=== PATIENT | male | born 1955 | race Caucasian/White ===

== ENCOUNTER → 2017-07-03 | Outpatient (CLI) | payer BC ==
[2017-07-03 15:27] LABS: Basophils % (A) 0 %; Eosinophils # (A) 0.2 k/uL (0-0.7); Eosinophils % (A) 3 %; HCT 42.3 % (39.0-53.0); Hyperchromasia Slight; Lymphocytes # (A) 1.8 k/uL (1.0-4.8); Lymphocytes % (A) 28 %; MCHC 35.5 g/dL (31.0-37.0); MCV 87.3 fL (80.0-100.0); Mean Platelet Volume 7.5; Monocytes # (A) 0.4 k/uL (0-1.0); Monocytes % (A) 6 %; Neutrophils # (A) 3.9 k/uL (1.3-7.7); Neutrophils % (A) 62 %; Platelet Count 313 k/uL (150-450); RBC 4.84 m/uL (4.30-5.90); RDW 12.6 % (11.5-15.5); WBC 6.3 k/uL (3.8-10.6)
[2017-07-03 15:48] LABS: ALT 33 U/L (21-72); AST 22 U/L (17-59); Albumin 4.4 g/dL (3.5-5.0); Alkaline Phosphatase 73 U/L (38-126); Anion Gap 13 mmol/L; Blood Urea Nitrogen 24 mg/dL (9-20); Calcium 9.8 mg/dL (8.4-10.2); Carbon Dioxide 24 mmol/L (22-30); Chloride 105 mmol/L (98-107); Cholesterol 193 mg/dL (<200); Glucose 89 mg/dL (74-99); HDL Cholesterol 35 mg/dL (40-60); LDL Cholesterol,Calculated 137 mg/dL (0-99); Potassium 4.8 mmol/L (3.5-5.1); Sodium 142 mmol/L (137-145); Total Bilirubin 0.9 mg/dL (0.2-1.3); Triglycerides 105 mg/dL (<150)
[2017-07-03 16:20] LABS: PSA Annual Screen 4.31 ng/mL (0.00-4.00)
== END | disposition home or self-care (01) ==
LOC: LABWHC1 14:41
PROVIDERS: ATTEND Internal Medicine
DX: Z00.00 Encounter for general adult medical examination without abnormal findings (principal); R97.20 Elevated prostate specific antigen [PSA]; Z13.6 Encounter for screening for cardiovascular disorders
CPT/HCPCS: 80061; 80053; 84443; 85025; 36415; G0103

== ENCOUNTER → 2022-02-16 | Day surgery (SDC) | payer BC ==
[~2022-02-16] MED LIST: LACTATED RINGERS 1,000 ML IV SCH; PROPOFOL 10 MG/ML 20 ML VIAL IV ONE
[2022-02-16 09:53] VITALS: TEMP 96.9
--- NOTE | 2022-02-16 12:07 | P.PCN ---
Date of Procedure: 02/16/22 Procedure(s) Performed: BRIEF HISTORY: Patient is a 66-year-old pleasant white male scheduled for an elective colonoscopy as a part of screening for colorectal neoplasia PROCEDURE PERFORMED: Colonoscopy. PREOPERATIVE DIAGNOSIS: Screening for colon cancer. IV sedation per Anesthesia. PROCEDURE: After informed consent was obtained, the patient, was brought into the endoscopy unit. IV sedation was administered by Anesthesia under continuous monitoring. Digital rectal examination was normal. Initially the Olympus CF-160 flexible video colonoscope was then inserted in the rectum, gradually advanced into the cecum without any difficulty. Careful examination was performed as the scope was gradually being withdrawn. Ileocecal valve and the appendiceal orifice were visualized and appeared normal. Prep was fair.. Mucosa of the cecum, ascending colon, transverse colon, descending colon, sigmoid colon, and rectum appeared normal. Retroflexion was performed in the rectum and no lesions were seen. The patient tolerated the procedure well. IMPRESSION:Normal-appearing colon from rectum to cecum no evidence of colorectal neoplasia . Scattered sigmoid diverticulosis. RECOMMENDATIONS: Findings of this examination were discussed with the patient as well as his family. He was advised to have a repeat screening colonoscopy in 10 years.
[2022-02-16 12:33] VITALS: BP 125/67; PULSE 66; RESP 16
== END ==
LOC: ORWHC2ENDO 09:24
PROVIDERS: ATTEND Internal Medicine Gastroenterology
DX: Z12.11 Encounter for screening for malignant neoplasm of colon (principal); K57.30 Diverticulosis of large intestine without perforation or abscess without bleeding; Z87.438 Personal history of other diseases of male genital organs; Z79.83 Long term (current) use of bisphosphonates; Z79.1 Long term (current) use of non-steroidal anti-inflammatories (NSAID); Z79.818 Long term (current) use of other agents affecting estrogen receptors and estrogen levels; Z79.82 Long term (current) use of aspirin
CPT/HCPCS: 45378; J2704; G0121

== ENCOUNTER → 2024-03-13 | Outpatient (CLI) | payer MEDICARE ==
--- NOTE | 2024-03-13 13:27 | XR ---
EXAMINATION TYPE: XR shoulder complete LT DATE OF EXAM: 03/13/2024 1:24 PM INDICATION: Patient age:Male; 68 years old; Reason for study: M25.512 pain L shoulder; pain COMPARISON: None TECHNIQUE: The left shoulder was examined in AP, internally rotated and scapular Y projections. . FINDINGS: No evidence of acute osseous pathology, joint dislocation, or soft tissue swelling. The remaining por tions of the visualized chest are unremarkable. IMPRESSION: No acute osseous pathology. [facility], , 03/13/2024 1:25 PM
== END | disposition home or self-care (01) ==
LOC: RADXRMAIN 13:06
PROVIDERS: ATTEND Family Medicine
DX: M25.512 Pain in left shoulder (principal)

== ENCOUNTER 2024-05-09 15:08 | Inpatient (IN) | payer MEDICARE ==
--- NOTE | 2024-05-09 15:16 | ED ---
Chest Pain HPI - General Source: patient, RN notes reviewed Mode of arrival: ambulatory Limitations: no limitations <Deepti Chamberlain - Last Filed: 05/09/24 15:15> <Octavio Gomez - Last Filed: 05/09/24 18:29> - General Stated Complaint: Chest pain-sent by PCP Time Seen by Provider: 05/09/24 15:15 - History of Present Illness Initial Comments: Quick note: 68-year-old male presented the ER for evaluation of chest discomfort. Patient states yesterday he was seen by PCP due to this as he had a burning/pulsating chest discomfort on Saturday night that woke him out of his sleep. He states it lasted for approximately an hour. He felt was indigestion and took an antiacid medication and fell back asleep. PCP contacted patient today stating abnormal laboratory studies completed yesterday and to report to the emergency department. Patient denies any current chest pain. Patient denies any history of MIs or stent placement. (Deepti Chamberlain) This is a 68-year-old male who presents to the emergency department stating that he has been having intermittent chest pain anytime he gets out of his car walks into work. Patient states he short of breath when it occurs and it last for about half an hour until he is rested enough where it goes away. Patient states he has had no history of heart problems he does have some family history that is positive. Patient states he also has high cholesterol. Patient denies diabetes or hypertension or smoking. Patient denies any fever chills or cough. Patient denies headache patient denies numbness weakness. Patient states currently that he has only very minimal chest pain (Octavio Gomez) - Related Data Home Medications Medication Instructions Recorded Confirmed Acetaminophen [Tylenol Arthritis] 1,300 mg PO BID 05/09/24 05/09/24 Cyclobenzaprine [Flexeril] 5 mg PO HS PRN 05/09/24 05/09/24 Metoprolol Succinate (ER) [Toprol 25 mg PO DAILY 05/09/24 05/09/24 Xl] Nitroglycerin Sl Tabs [Nitrostat] 0.4 mg SUBLINGUAL Q5M PRN 05/09/24 05/09/24 Allergies Allergy/AdvReac Type Severity Reaction Status Date / Time No Known Allergies Allergy Verified 05/09/24 15:59 Review of Systems ROS Other: All systems not noted in ROS Statement are negative. <Deepti Chamberlain - Last Filed: 05/09/24 15:15> ROS Other: All systems not noted in ROS Statement are negative. <Octavio Gomez - Last Filed: 05/09/24 18:29> ROS Statement: Those systems with pertinent positive or pertinent negative responses have been documented in the HPI. Past Medical History Past Medical History: Prostate Disorder Additional Past Medical History / Comment(s): recent biopsy of prostate( local) History of Any Multi-Drug Resistant Organisms: None Reported Past Surgical History: No Surgical Hx Reported Past Anesthesia/Blood Transfusion Reactions: No Reported Reaction Smoking Status: Never smoker - Past Family History Mother Family Medical History: Cancer Additional Family Medical History / Comment(s): rectal Father Additional Family Medical History / Comment(s): parkinsons <Deepti Chamberlain - Last Filed: 05/09/24 15:15> General Exam <Deepti Chamberlain - Last Filed: 05/09/24 15:15> <Octavio Gomez - Last Filed: 05/09/24 18:29> - General Exam Comments Initial Comments: Visual Physical Exam Vital signs reviewed General: Well-appearing, nontoxic, no acute distress. Head: Normocephalic, atraumatic Eyes: PERRLA, EOMI ENT: Airway patent Chest: Nonlabored breathing Skin: No visual rash, normal skin tone Neuro: Alert and oriented 3 Musculoskeletal: No gross abnormalities (Deepti Chamberlain) GENERAL: Patient is well-developed and well-nourished. Patient is nontoxic and well- hydrated and is in mild distress. ENT: Neck is soft and supple. No significant lymphadenopathy is noted. Oropharynx is clear. Moist mucous membranes. Neck has full range of motion without eliciting any pain. EYES: The sclera were anicteric and conjunctiva were pink and moist. Extraocular movements were intact and pupils were equal round and reactive to light. Eyelids were unremarkable. PULMONARY: Unlabored respirations. Good breath sounds bilaterally. No audible rales rhonchi or wheezing was noted. CARDIOVASCULAR: There is a regular rate and rhythm without any murmurs gallops or rubs. ABDOMEN: Soft and nontender with normal bowel sounds. SKIN: Skin is clear with no lesions or rashes and otherwise unremarkable. NEUROLOGIC: Patient is alert and oriented x3. Cranial nerves II through XII are grossly intact. Motor and sensory are also intact. Normal speech, volume and content. Symmetrical smile. MUSCULOSKELETAL: Normal extremities with adequate strength and full range of motion. LYMPHATICS: No significant lymphadenopathy is noted PSYCHIATRIC: Normal psychiatric evaluation. (Octavio Gomez) Course Vital Signs 05/09/24 05/09/24 15:21 17:00 Temperature 97.4 F L Pulse Rate 64 75 Respiratory 17 16 Rate Blood Pressure 155/76 137/80 O2 Sat by Pulse 99 97 Oximetry Chest Pain MDM <Deepti Chamberlain - Last Filed: 05/09/24 15:15> <Octavio Gomez - Last Filed: 05/09/24 18:29> - WARREN I performed the quick note portion of this chart. Electronically signed by Deepti Chamberlain PA-C (Deepti Chamberlain) EKG is interpreted by myself EKG shows sinus rhythm at 70 bpm HI intervals 179 QRS is 97 QT interval 381 QTc is 402. Patient's EKG shows no ST segment elevation or depression Was pt. sent in by a medical professional or institution (KIERA Butler, [employer], urgent care, hospital, or [place] health care facility...) When possible be specific @ -No Did you speak to anyone other than the patient for history (EMS, parent, family, police, friend...)? What history was obtained from this source @ -No Did you review nursing and triage notes (agree or disagree)? Why? @ -I reviewed and agree with nursing and triage notes Were old charts reviewed (outside hosp., previous admission, EMS record, old EKG, old radiological studies, urgent care reports/EKG's, [place] health care facility records)? Report findings @ -No old charts were reviewed Differential Diagnosis? @ -Differential Chest Pain: Stable Angina, Unstable Angina, STEMI, NSTEMI Aortic Dissection, Pneumothorax, Musculoskeletal, Esophageal Spasm GERD, Cholecystitis, Pancreatitis, Zoster, this is not meant to be an all-inclusive list. EKG interpreted by me (3pts min.). @ -As above X-rays interpreted by me (1pt min.). @ -Chest x-ray shows no acute normality CT interpreted by me (1pt min.). @ -None done U/S interpreted by me (1pt. min.). @ -None done What testing was considered but not performed or refused? (CT, X-rays, U/S, labs)? Why? @ -None What meds were considered but not given or refused? Why? @ -None Did you discuss the management of the patient with other professionals (professionals i.e. Dr., PA, [employer], lab, RT, psych nurse, sexual assault social worker, digital press operator, teacher, soil science technical officer, case briefer)? Give summary @ -I spoke with Dr. De Los Santos he agreed to admit the patient admit the patient I consulted cardiology. Spoke with Dr. Jake boone with the patient on metoprolol and heparin end I ordered those Was smoking cessation discussed for >3mins.? @ -No Was critical care preformed (if so, how long)? @ -35 minutes Were there social determinants of health that impacted care today? How? (Homelessness, low income, unemployed, alcoholism, drug addiction, transportation, low edu. Level, literacy, decrease access to med. care, long-term, rehab)? @ -No Was there de-escalation of care discussed even if they declined (Discuss DNR or withdrawal of care, Hospice)? DNR status @ -No What co-morbidities impacted this encounter? (DM, HTN, Smoking, COPD, CAD, Cancer, CVA, ARF, Chemo, Hep., AIDS, mental health diagnosis, sleep apnea, morbid obesity)? @ -None Was patient admitted / discharged? Hospital course, mention meds given and route, prescriptions, significant lab abnormalities, going to OR and other pertinent info. @ -Patient was chest pain-free throughout the ED course. Patient's troponin was elevated patient was placed on heparin given aspirin Nitropaste and given metoprolol and Lipitor cardiology will be consulted Undiagnosed new problem with uncertain prognosis? @ -No Drug Therapy requiring intensive monitoring for toxicity (Heparin, Nitro, Insulin, Cardizem)? @ -No Were any procedures done? @ -No Diagnosis/symptom? @ -NSTEMI Acute, or Chronic, or Acute on Chronic? @ -Acute Uncomplicated (without systemic symptoms) or Complicated (systemic symptoms)? @ -Complicated Side effects of treatment? @ -No Exacerbation, Progression, or Severe Exacerbation? @ -No Poses a threat to life or bodily function? How? (Chest pain, [place], [place], pneumonia, PE, COPD, DKA, ARF, appy, cholecystitis, CVA, Diverticulitis, Homicidal, Suicidal, threat to staff... and all critical care pts) @ -Yes this can lead to heart damage and endorgan dysfunction (Octavio Gomez) Disposition <Deepti Chamberlain - Last Filed: 05/09/24 15:15> Time of Disposition: 18:29 <Octavio Gomez - Last Filed: 05/09/24 18:29> Clinical Impression: Acute non-ST elevation myocardial infarction (NSTEMI) Disposition: ADMITTED IP TO THIS HOSP Referrals: Livier Zuñiga MD [Primary Care Provider] - 1-2 days
[2024-05-09 15:29] LABS: Basophils # (A) 0.1 k/uL (0-0.2); Basophils % (A) 1 %; Eosinophils # (A) 0.4 k/uL (0-0.7); Eosinophils % (A) 5 %; HCT 43.9 % (39.0-53.0); HGB 14.8 gm/dL (13.0-17.5); Lymphocytes # (A) 2.1 k/uL (1.0-4.8); Lymphocytes % (A) 26 %; MCH 30.5 pg (25.0-35.0); MCHC 33.7 g/dL (31.0-37.0); MCV 90.3 fL (80.0-100.0); Mean Platelet Volume 7.4; Monocytes # (A) 0.4 k/uL (0-1.0); Monocytes % (A) 5 %; Neutrophils % (A) 62 %; Platelet Count 300 k/uL (150-450); RBC 4.87 m/uL (4.30-5.90); RDW 12.4 % (11.5-15.5)
[2024-05-09 15:48] LABS: Partial Thromboplastin Time 22.6 sec (22.0-30.0); Prothrombin Time 11.1 sec (10.0-12.5)
[2024-05-09 16:04] LABS: ALT 21 U/L (4-49); AST 31 U/L (17-59); African American GFR (CKD) >90 (>60 ml/min/1.73 sqM); Albumin 4.6 g/dL (3.5-5.0); Alkaline Phosphatase 82 U/L (38-126); Anion Gap 9 mmol/L; Blood Urea Nitrogen 23 mg/dL (9-20); Calcium 9.7 mg/dL (8.4-10.2); Carbon Dioxide 26 mmol/L (22-30); Chloride 100 mmol/L (98-107); Glucose 101 mg/dL (74-99); Non-African American GFR(CKD) >90 (>60 ml/min/1.73 sqM); Potassium 4.7 mmol/L (3.5-5.1); Sodium 135 mmol/L (137-145); Total Bilirubin 0.7 mg/dL (0.2-1.3); Total Protein 6.9 g/dL (6.3-8.2)
--- NOTE | 2024-05-09 16:10 | XR ---
EXAMINATION TYPE: XR chest 2V DATE OF EXAM: 05/09/2024 4:01 PM COMPARISON: None. CLINICAL INDICATION: Male, 68 years old with history of Chest Pain: Shortness of breath TECHNIQUE: XR chest 2V views of the chest are obtained. FINDINGS: Scattered senescent parenchymal changes noted. Hyperinflation compatible with COPD. No evidence for infiltrate. No evidence for atelectasis. Heart size is stable. Mediastinal structures are stable and grossly unremarkable. No evidence for hilar prominence. Degenerative changes dorsal spine. IMPRESSION: 1. No evidence for acute pulmonary disease. [facility], , 05/09/2024 4:07 PM
[2024-05-09] MEDS: ASPIRIN 81 MG PO STA (16:41)
[2024-05-09] MEDS: NITROGLYCERIN OINT 1 INCH/GM PACKET TOPICAL STA (16:41)
[2024-05-09] MEDS ORDERED: NITROGLYCERIN SL TABS 0.4 MG TAB SUBLINGUAL PRN (18:25)
[2024-05-09] MEDS: HEPARIN SODIUM 1,000 UN/ML (10ML VL) IV ONE (19:04)
[2024-05-09] MEDS: ATORVASTATIN 80 MG TAB PO STA (19:04)
[2024-05-09] MEDS: HEPARIN SOD,PORK IN 0.45% NACL 25,000 UNIT in 0.45% NACL 1 250ML.BAG IV SCH (19:08)
--- NOTE | 2024-05-09 20:27 | HP ---
HISTORY AND PHYSICAL CHIEF COMPLAINT: Chest pain on and off. HISTORY OF PRESENT ILLNESS: This is a 68-year-old gentleman with a past medical history of multiple medical problems including prostate disorder, was having right shoulder pain. The patient also had chest pain on and off. The patient has upper part of the chest pressure type of sensation. The patient came to [facility]. Troponins elevated up to 0.761. There is no history of any fever, rigors, or chills at this time. The patient is being admitted for further evaluation and treatment. PAST MEDICAL HISTORY: Reviewed include prostate disorder. The rest of history and rest of the chart is also reviewed. HOME MEDICATIONS: Reviewed include Tylenol. ALLERGIES: None. FAMILY HISTORY: History of rectal cancer. SOCIAL HISTORY: No history of smoking or alcohol. REVIEW OF SYSTEMS: Fourteen-point review of systems is negative except as mentioned earlier. PHYSICAL EXAMINATION: VITAL SIGNS: Pulse is 74, blood pressure 136/80, and respirations 16. HEENT: Conjunctivae normal. NECK: No JVD. CARDIOVASCULAR: S1, S2. ABDOMEN: Soft and nontender. LEGS: No edema. No swelling. NERVOUS SYSTEM: Nonfocal. LABORATORY DATA: Sodium 135. Troponins noted. EKG shows nonspecific ST-T wave changes. ASSESSMENT: 1. Chest pain, possible acute [id number] elevation myocardial infarction with troponin elevated up to 0.761. 2. Shortness of breath . 3. Shoulder pain. 4. History of prostate disorder. RECOMMENDATIONS AND DISCUSSION: This is a 68-year-old gentleman who presented with multiple complex medical issues. We will monitor the patient. We will initiate IV heparin, Cardiology consultation, possible cardiac catheterization, 2D echo. Prognosis is guarded because of multiple complex medical issues. Further recommendations to follow. MMODL / IJN: [id number] / MTDD
[2024-05-09] MEDS: ACETAMINOPHEN TAB 325 MG TAB PO SCH (22:04)
[2024-05-09] MEDS: METOPROLOL TARTRATE 50 MG TAB PO SCH (22:04)
[2024-05-09] MEDS: NITROGLYCERIN OINT 1 INCH/GM PACKET TOPICAL SCH (23:02)
[2024-05-10] MEDS: HEPARIN SODIUM 1,000 UN/ML (10ML VL) IV PRN (02:47)
[2024-05-10] MEDS ORDERED: HEPARIN SODIUM,PORCINE (1 ML) 2,500 UNIT in SODIUM CHLORIDE 0.9% 250 ML IRRIGATION PRN (07:00)
[2024-05-10] MEDS ORDERED: HEPARIN SODIUM,PORCINE 10,000 UNIT in SODIUM CHLORIDE 0.9% 1,000 ML IRRIGATION PRN (07:00)
[2024-05-10] MEDS: ASPIRIN 325 MG TAB PO SCH (09:10)
--- NOTE | 2024-05-10 09:14 | P.CRDCN ---
History of Present Illness Consult date: 05/10/24 Consult reason: chest pain History of present illness: This is Pedro Marmolejo NP, I'm dictating on behalf of Dr. Noel's H&P and A&P The patient was interviewed and examined. HPI: Patient is a pleasant 68-year-old male with a past medical history of enlarged prostate and hyperlipidemia who presented to the hospital for evaluation of chest discomfort. Patient reports that he presented to his primary care provider's office yesterday due to a burning/pulsating chest discomfort in the middle of last week that woke him up. This has happened over the last 3 weeks. He reported that it lasted approximately an hour, and thought that maybe he was having heartburn and took an antiacid. He has also been having burning chest pain with shortness of breath when he walks into and out of work, that resolves at rest. Patient had lab work completed through his primary care office, and after finding abnormal studies he was called and were told to report to the emergency department. He states the chest pain has been intermittent, sp ecifically with walking into work. He does get short of breath when it occurs and reports that the shortness of breath last for about half hour until he is rested enough. He has no significant history of heart issues. Troponins are elevated at 0.7, but flat trend. The troponin that was completed from his primary care provider's office was at 1. EKG demonstrates normal sinus rhythm with no evidence of ST elevation or T wave inversion. Chest x-ray is clear. This morning the patient reports very minimal chest discomfort. He denies any shortness of breath. He reports his worst episode of discomfort being the pounding sensation he got in the middle of last week, and also reports that his burning chest pain and shortness of breath increased in the middle of last week as well. ROS: [No fever, chills, or rigors] [no cough, phlegm, or expectoration] [no nausea, vomiting, or diarrhea] [no hematuria, dysuria] [no musculoskelatal complaints] [no strokes or seizures] [no skin lesions] EXAMINATION: GENERAL: Well-appearing, well-nourished and in no acute distress. NECK: Supple without JVD or thyromegaly. LUNGS: Breath sounds clear to auscultation bilaterally. Respiration equal and unlabored. No wheezes, rales or rhonchi. HEART: Regular rate and rhythm without murmurs, rubs or gallops. S1 and S2 heard. EXTREMITIES: Normal range of motion, no edema. No clubbing or cyanosis. Per ipheral pulses intact and strong. REVIEW OF LABS, ECG & MEDICAL DATA: LABS: White count 8, hemoglobin 14.8, platelets 300, D-dimer 0.29, sodium 135, potassium 4.7, BUN 23, creatinine 0.84, magnesium 2, troponin-0.761, 0.708, 0.794 EKG: Sinus mechanism IMAGING: Chest x-ray dated 05/09/2024 demonstrates no evidence for acute pulmonary disease. VITALS: Pulse 65, respirations 17, blood pressure 136/83, O2 saturation 94% over room air IMPRESSION: 1. Stable angina 2. Elevated troponin, likely non-ST elevated AR, currently flat trend 3. History high cholesterol PLAN: Check lipid panel, hemoglobin A1c. Start losartan 25 mg daily. Continue metoprolol 50 mg twice daily. Patient will need coronary angiogram, as symptoms are consistent with stable angina with possible AR, likely 5 to 7 days ago. Further recommendations pending patient's clinical course. Thank you for the consult and allowing us to participate in the care of this patient. Past Medical History Past Medical History: Prostate Disorder Additional Past Medical History / Comment(s): recent biopsy of prostate( local) History of Any Multi-Drug Resistant Organisms: None Reported Past Surgical History: No Surgical Hx Reported Past Anesthesia/Blood Transfusion Reactions: No Reported Reaction Past Psychological History: No Psychological Hx Reported Smoking Status: Never smoker - Past Family History Mother Family Medical History: Cancer Additional Family Medical History / Comment(s): rectal Father Additional Family Medical History / Comment(s): parkinsons Medications and Allergies Home Medications Medication Instructions Recorded Confirmed Type Acetaminophen [Tylenol Arthritis] 1,300 mg PO BID 05/09/24 05/09/24 History Cyclobenzaprine [Flexeril] 5 mg PO HS PRN 05/09/24 05/09/24 History Metoprolol Succinate (ER) [Toprol 25 mg PO DAILY 05/09/24 05/09/24 History Xl] Nitroglycerin Sl Tabs [Nitrostat] 0.4 mg SUBLINGUAL Q5M PRN 05/09/24 05/09/24 History Allergies Allergy/AdvReac Type Severity Reaction Status Date / Time No Known Allergies Allergy Verified 05/09/24 15:59 Physical Exam Vitals: Vital Signs Temp Pulse Resp BP Pulse Ox 05/10/24 09:00 68 17 134/83 98 05/10/24 05:53 65 17 136/83 94 L 05/10/24 02:49 66 18 141/83 94 L 05/09/24 23:01 67 18 127/72 97 05/09/24 22:05 69 16 133/73 97 05/09/24 19:00 87 16 133/80 96 05/09/24 18:00 82 13 146/83 97 05/09/24 17:00 75 16 137/80 97 05/09/24 15:21 97.4 F L 64 17 155/76 99 Intake and Output 05/09/24 05/10/24 05/10/24 22:59 06:59 14:59 Intake Total 74.791 Balance 74.791 Intake: Intake, IV Titration 74.791 Amount Heparin Sod,Pork in 0.45% 74.791 NaCl 25,000 unit In 0.45 % NaCl 1 250ml.bag @ 12 UNITS/KG/HR 9.798 mls/hr IV .Q24H [facility] Rx#: [id number] Other: Weight 81.647 kg Results 05/09/24 15:19 05/09/24 15:19 Cardiac Enzymes 05/09/24 05/09/24 05/09/24 Range/Units 15:19 15:19 19:24 AST 31 (17-59) U/L Troponin I 0.761 H* 0.708 H* (0.000-0.034) ng/mL 05/09/24 Range/Units 22:43 AST (17-59) U/L Troponin I 0.794 H* (0.000-0.034) ng/mL Coagulation 05/09/24 05/10/24 Range/Units 15:19 01:12 PT 11.1 (10.0-12.5) sec APTT 22.6 34.5 H (22.0-30.0) sec CBC 05/09/24 Range/Units 15:19 WBC 8.0 (3.8-10.6) k/uL RBC 4.87 (4.30-5.90) m/uL Hgb 14.8 (13.0-17.5) gm/dL Hct 43.9 (39.0-53.0) % Plt Count 300 (150-450) k/uL Comprehensive Metabolic Panel 05/09/24 Range/Units 15:19 Sodium 135 L (137-145) mmol/L Potassium 4.7 (3.5-5.1) mmol/L Chloride 100 (98-107) mmol/L Carbon Dioxide 26 (22-30) mmol/L BUN 23 H (9-20) mg/dL Creatinine 0.84 (0.66-1.25) mg/dL Glucose 101 H (74-99) mg/dL Calcium 9.7 (8.4-10.2) mg/dL AST 31 (17-59) U/L ALT 21 (4-49) U/L Alkaline Phosphatase 82 (38-126) U/L Total Protein 6.9 (6.3-8.2) g/dL Albumin 4.6 (3.5-5.0) g/dL Current Medications Generic Name Dose Route Start Last Admin Trade Name Freq PRN Reason Stop Dose Admin Acetaminophen 650 mg 05/09/24 22:00 05/10/24 09:11 Acetaminophen Tab 325 Mg Tab PO Not Given TID [facility] Aspirin 325 mg 05/10/24 09:00 05/10/24 09:10 Aspirin 325 Mg Tab PO 325 mg DAILY MICKEY Administration Heparin Sodium (Porcine) 0 unit 05/10/24 02:43 05/10/24 02:47 Heparin Sodium 1,000 Un/Ml (10ml Vl) IV 2,041.175 unit PER PROTOCOL PRN Administration Low PTT Protocol Heparin Sodium/Sodium Chloride 250 mls @ 9.798 mls/hr 05/09/24 18:00 05/10/24 02:46 25,000 unit/ Sodium Chloride IV 14.45 units/kg/hr .Q24H MICKEY 11.798 mls/hr Titration Protocol 12 UNITS/KG/HR Losartan Potassium 25 mg 05/10/24 09:15 Losartan 25 Mg Tab PO DAILY [facility] Metoprolol Tartrate 50 mg 05/09/24 21:00 05/10/24 09:11 Metoprolol Tartrate 50 Mg Tab PO 50 mg BID MICKEY Administration Nitroglycerin 0.4 mg 05/09/24 18:25 Nitroglycerin Sl Tabs 0.4 Mg Tab SUBLINGUAL Q5M PRN Chest Pain Nitroglycerin 1 inch 05/10/24 00:00 05/10/24 05:10 Nitroglycerin Oint 1 Inch/Gm Packet TOPICAL Not Given Q6HR [facility] Intake and Output 05/09/24 05/10/24 05/10/24 22:59 06:59 14:59 Intake Total 74.791 Balance 74.791 Intake: Intake, IV Titration 74.791 Amount Heparin Sod,Pork in 0.45% 74.791 NaCl 25,000 unit In 0.45 % NaCl 1 250ml.bag @ 12 UNITS/KG/HR 9.798 mls/hr IV .Q24H [facility] Rx#: [id number] Other: Weight 81.647 kg 05/09/24 15:19 05/09/24 15:19
[2024-05-10 09:48] LABS: Basophils % (A) 1 %; Eosinophils # (A) 0.4 k/uL (0-0.7); Eosinophils % (A) 6 %; HGB 15.8 gm/dL (13.0-17.5); Lymphocytes # (A) 1.9 k/uL (1.0-4.8); Lymphocytes % (A) 31 %; MCH 31.1 pg (25.0-35.0); MCHC 34.3 g/dL (31.0-37.0); MCV 90.5 fL (80.0-100.0); Mean Platelet Volume 7.3; Monocytes # (A) 0.3 k/uL (0-1.0); Monocytes % (A) 5 %; Neutrophils # (A) 3.4 k/uL (1.3-7.7); Neutrophils % (A) 56 %; Platelet Count 278 k/uL (150-450); RBC 5.09 m/uL (4.30-5.90); RDW 12.4 % (11.5-15.5)
[2024-05-10 10:11] LABS: ALT 22 U/L (4-49); AST 27 U/L (17-59); African American GFR (CKD) >90 (>60 ml/min/1.73 sqM); Albumin 4.6 g/dL (3.5-5.0); Alkaline Phosphatase 88 U/L (38-126); Anion Gap 9 mmol/L; Blood Urea Nitrogen 19 mg/dL (9-20); Calcium 9.4 mg/dL (8.4-10.2); Carbon Dioxide 26 mmol/L (22-30); Chloride 103 mmol/L (98-107); Glucose 118 mg/dL (74-99); Non-African American GFR(CKD) >90 (>60 ml/min/1.73 sqM); Potassium 4.6 mmol/L (3.5-5.1); Sodium 138 mmol/L (137-145); Total Bilirubin 0.8 mg/dL (0.2-1.3); Total Protein 6.8 g/dL (6.3-8.2)
[2024-05-10] MEDS: LOSARTAN 25 MG TAB PO SCH (11:25)
[2024-05-10] MEDS ORDERED: ALPRAZolam 0.5 MG TAB PO PRN (11:27)
[2024-05-10] MEDS ORDERED: ALPRAZolam 0.25 MG TAB PO PRN (11:27)
[2024-05-10] MEDS ORDERED: NITROGLYCERIN SL TABS 0.4 MG TAB SUBLINGUAL PRN ×2 (11:27→14:17)
[2024-05-10] MEDS: ASPIRIN 325 MG TAB PO STA (11:38)
[2024-05-10] MEDS: SODIUM CHLORIDE 0.9% 1,000 ML IV ONE (13:01)
[2024-05-10] MEDS: MIDAZOLAM 2 MG/2 ML VIAL IVP ONE (13:21)
[2024-05-10] MEDS: LIDOCAINE 1% INJ 10MG/ML (20 ML MDV) SQ ONE (13:26)
[2024-05-10] MEDS: VERAPAMIL SYRINGE (5 MG/10 ML) INTRAARTER ONE (13:27)
[2024-05-10] MEDS: HEPARIN SODIUM 1,000 UN/ML (10ML VL) IVP ONE (13:36)
[2024-05-10] MEDS: TICAGRELOR 90 MG TAB PO ONE (13:36)
[2024-05-10] MEDS: HEPARIN SODIUM,PORCINE 10,000 UNIT in SODIUM CHLORIDE 0.9% 1,000 ML IRRIGATION ONE (13:39)
[2024-05-10] MEDS: HEPARIN SODIUM,PORCINE (1 ML) 2,500 UNIT in SODIUM CHLORIDE 0.9% 250 ML IRRIGATION ONE ×2 (13:42→14:12)
[2024-05-10] MEDS: NITROGLYCERIN 1000MCG/10ML SYRINGE INTRACORON ONE (13:48)
[2024-05-10] MEDS: IOPAMIDOL-370 100ML BTL INJ ONE ×2 (13:52→14:11)
[2024-05-10] MEDS ORDERED: MAG HYDROX/AL HYDROX/SIMETH 30 ML CUP PO PRN (14:17)
[2024-05-10] MEDS ORDERED: ATROPINE SULFATE 0.1 MG/ML 10ML SYRINGE IV PRN (14:17)
[2024-05-10] MEDS ORDERED: RX INFO: IV CONTRAST WAS GIVEN 1 EACH MISC MISCELLANE PRN (14:17)
--- NOTE | 2024-05-10 14:24 | P.PCN ---
Date of Procedure: 05/10/24 Operative Findings: CARDIAC CATHETERIZATION AND PERCUTANEOUS CORONARY INTERVENTION PERFORMING PHYSICIAN: Patrick Arreola MD, [facility] PROCEDURE PERFORMED: 1. Selective right and left coronary angiogram 2. Successful stenting of mid RCA using 4.0 x 28 mm Xience MIKE with an excellent angiographic results 3. Successful stenting of the mid LAD using 3.0 x 15 mm Xience MIKE with an excellent angiographic results 4. Adjunctive use of IVUS 5. Ultrasound-guided access of the right radial artery INDICATION: Acute non-ST elevation myocardial infarction COMPLICATION: None APPROACH: Right radial artery LEVEL OF SEDATION: Moderate with the sedation time off 42 minutes PROCEDURE DESCRIPTION: After obtaining informed consent the patient was brought to the cardiac E Business Project Manager with right radial artery was cannulated using micropuncture technique under ultrasound guidance a micropuncture wire passed easily then I placed a 6 Albanian 11 cm sheath at the right radial artery and give the patient 2 mg of verapamil intra-arterial and 5000's of heparin intravenous with continuous ACT monitoring. Selective right and left coronary angiogram performed using JR4 and JL 3.5 catheters. After that we decided to intervene on the RCA and LAD. The patient was loaded with Brilinta at 180 mg p.o. once. Subsequently I did engage the RCA using an AL 0.75 guiding catheter. I did wired using a run-through wire. IVUS was performed and showed a diameter around 3.5 to 4 mm with a soft lesion. I did predilated using 3.5 mm NC balloon before I deployed 4.0 x 28 mm Xience MIKE where the stent was positioned under fluoroscopy guidance and deployed under fluoroscopy guidance and an angiography and IVUS was performed showed good results. After that I decided to engage the left main using JL 3.5 guiding catheter and wired the LAD using a run-through wire. IVUS was performed and showed a diameter around 3 mm with a soft lesion as well. I did predilated using 3 mm score flex balloon before I deployed 3.0 x 15 mm Xience MIKE which was postdilated using 3.5 mm NC balloon with a final angiogram showed excellent michelle ographic results and the procedure was completed with no complication SELECTIVE CORONARY ANGIOGRAM: The right coronary artery: Large caliber vessel and a dominant vessel with critical disease involving the midportion with a hazy lesion appears to be thrombus. The PLV branch of the RCA which is a large-caliber vessel has a lesion appears to be in the range of 60 to 70% Left main: Is angiographically normal. Bifurcates into an LCx and LAD The left circumflex: Large caliber vessel nondominant vessel gives rise into an OM1 which has a lesion appears to be in the range of 20 to 30% only The left anterior descending artery: The mid LAD has a lesion focal appears to be in the range of 80% by the bifurcation of a diagonal branch which has mild disease only. The LAD after that appeared to have mild to moderate diffuse disease with no evidence of high- grade stenosis CONCLUSION: 1. Critical disease involving the mid RCA with a plaque rupture and thrombus formation. I did successful PCI of the RCA with reduction of stenosis from 99% to 0%. 2. The PLV branch of the RCA which is a large-caliber vessel has intermediate to severe lesion appears to be in the range of 60 to 70% treated medically at this point 3. Critical disease involving the mid LAD. I did perform successful PCI of the LAD with reduction of stenosis from 80% to 0% POSTPROCEDURE MANAGEMENT: 1. Dual antiplatelet therapy using aspirin and Brilinta for 12 month 2. Consider medical treatment for the PLV branch of the RCA at this point unless the patient continues to be symptomatic
[2024-05-10] MEDS: SODIUM CHLORIDE 0.9% 1,000 ML in EMPTY BAG 1 BAG IV SCH (14:44)
[2024-05-10] MEDS: ATORVASTATIN 80 MG TAB PO STA (14:44)
[2024-05-10] MEDS: ATORVASTATIN 80 MG TAB PO SCH (21:06)
[2024-05-10] MEDS: TICAGRELOR 90 MG TAB PO SCH (21:06)
[2024-05-10] MEDS: ZOLPIDEM 5 MG TAB PO PRN (23:29)
--- NOTE | 2024-05-10 23:55 | PN ---
PROGRESS NOTE DATE OF SERVICE: 05/10/2024 SUBJECTIVE: This is a 68-year-old gentleman admitted with chest pain, acute dlz-FJ-hlthlor elevation myocardial infarction, underwent cardiac catheterization and as well as stenting of the mid RCA and mid LAD by Dr. Arreola. No chest pain. No palpitation. OBJECTIVE: VITAL SIGNS: Pulse is 56, blood pressure 130/72, respirations 14. CHEST: Clear to auscultation. CARDIOVASCULAR: S1, S2. ABDOMEN: Soft. LABORATORY DATA: Reviewed. ASSESSMENT: 1. Status post acute xek-TL-skpyptu elevation myocardial infarction and cardiac catheterization and stenting of the mid right coronary artery and mid left anterior descending. 2. Shortness of breath. 3. Shoulder pain. 4. History of prostate disorder. RECOMMENDATIONS: Recommend to continue current management and continue symptomatic treatment. Repeat labs and dual antiplatelet agents. Closely follow with Cardiology. Prognosis guarded. Further recommendations to follow. MMODL / IJN: [id number] /
[2024-05-11 04:54] LABS: Basophils % (A) 1 %; Eosinophils # (A) 0.3 k/uL (0-0.7); Eosinophils % (A) 5 %; HCT 42.4 % (39.0-53.0); HGB 14.4 gm/dL (13.0-17.5); Lymphocytes # (A) 1.5 k/uL (1.0-4.8); Lymphocytes % (A) 20 %; MCH 31.4 pg (25.0-35.0); MCV 92.5 fL (80.0-100.0); Mean Platelet Volume 7.3; Monocytes # (A) 0.4 k/uL (0-1.0); Monocytes % (A) 6 %; Neutrophils # (A) 4.9 k/uL (1.3-7.7); Neutrophils % (A) 67 %; Platelet Count 259 k/uL (150-450); RBC 4.58 m/uL (4.30-5.90); RDW 12.9 % (11.5-15.5); WBC 7.4 k/uL (3.8-10.6)
[2024-05-11 04:59] LABS: African American GFR (CKD) >90 (>60 ml/min/1.73 sqM); Anion Gap 8 mmol/L; Blood Urea Nitrogen 14 mg/dL (9-20); Calcium 9.4 mg/dL (8.4-10.2); Carbon Dioxide 24 mmol/L (22-30); Chloride 103 mmol/L (98-107); Glucose 100 mg/dL (74-99); Non-African American GFR(CKD) >90 (>60 ml/min/1.73 sqM); Potassium 4.3 mmol/L (3.5-5.1); Sodium 135 mmol/L (137-145)
--- NOTE | 2024-05-11 06:53 | P.PN ---
Subjective Progress Note Date: 05/11/24 The patient is a pleasant 68-year-old gentleman who was admitted to the hospital with chest discomfort and abnormal cardiac enzymes and he was diagnosed with acute non-ST ovation myocardial infarction and underwent a heart catheterization where he was found to have critical disease involving the RCA and LAD and he underwent PCI of both with residual disease involving the PLV branch of the RCA appears to be in the range of 60 to 70% treated medically. The echo still pending May 11, 2024 The patient was seen and evaluated this morning. Overall he seems to be stable and asymptomatic. He is on dual antiplatelet therapy along with a statin. Will wait for the echocardiogram. Possible discharge in next 24 to 48 hours. The physical examination is remarkable for regular rhythm with a soft systolic murmur and clear breathing sounds bilaterally and no edema was noted Assessment Acute non-ST ovation myocardial infarction CAD status post PCI as described above The ejection fraction is unknown at this point Hypertension and dyslipidemia Plan Continue the current medical regimen Follow-up on the echocardiogram Further recommendation to follow Objective - Vital Signs Vital signs: Vital Signs Temp 97.6 F 05/11/24 03:53 Pulse 72 05/11/24 03:53 Resp 17 05/11/24 03:53 BP 117/65 05/11/24 03:53 Pulse Ox 96 05/11/24 03:53 FiO2 Intake & Output 05/10/24 05/10/24 05/11/24 06:59 18:59 06:59 Intake Total 74.791 680 20 Output Total 400 Balance 74.791 280 20 Weight 81.647 kg 80.3 kg Intake: IV 440 20 Invasive Line 1 10 20 Intake, IV Titration 74.791 Amount Heparin Sod,Pork in 0.45% 74.791 NaCl 25,000 unit In 0.45 % NaCl 1 250ml.bag @ 12 UNITS/KG/HR 9.798 mls/hr IV .Q24H MICKEY Rx#: [id number] Oral 240 Output: Urine 400 Other: Voiding Method Urinal Toilet # Voids 1 1 # Bowel Movements 1 - Labs CBC & Chem 7: 05/11/24 04:20 05/11/24 04:20 Labs: Abnormal Lab Results - Last 24 Hours (Table) 05/10/24 05/10/24 05/11/24 Range/Units 09:17 09:17 04:20 APTT 50.4 H (22.0-30.0) sec Sodium 135 L (137-145) mmol/L Glucose 118 H 100 H (74-99) mg/dL
[2024-05-11] MEDS: ASPIRIN 81 MG PO SCH (08:56)
[2024-05-11 12:54] VITALS: BMI 27.7
--- NOTE | 2024-05-11 17:24 | CA ---
Transthoracic Echo Report Name: Canelo Day Age: 68 Gender: M : 1955 Exam Date: 05/11/2024 09:56 Exam Location: [facility] Ht (in): 67 Wt (lb): 180 Ordering Physician: Chad De Los Santos MD Attending/Referring Phys: Fast Food Manager Leesa Morales RDCS Procedure CPT: Indications: chf Cardiac Hx: 2 stents Technical Quality: Good Contrast 1: Total Dose (mL): Contrast 2: Total Dose (mL): MEASUREMENTS (Male / Female) Normal Values 2D ECHO LV Diastolic Diameter PLAX 4.9 cm 4.2 - 5.9 / 3.9 - 5.3 cm LV Systolic Diameter PLAX 3.7 cm IVS Diastolic Thickness 0.9 cm 0.6 - 1.0 / 0.6 - 0.9 cm LVPW Diastolic Thickness 1.2 cm 0.6 - 1.0 / 0.6 - 0.9 cm LV Relative Wall Thickness 0.4 LVOT Diameter 2.5 cm LV Diastolic Volume MOD BP 94.7 cm??? 67 - 155 / 56 - 104 cm??? LV Systolic Volume MOD BP 46.8 cm??? 22 - 58 / 19 - 49 cm??? LV Ejection Fraction MOD BP 50.5 % >= 55 % LV Cardiac Index MOD BP 1663.2 cm???/min???m??? LV Diastolic Volume MOD 4C 93.3 cm??? LV Systolic Volume MOD 4C 48.4 cm??? LV Ejection Fraction MOD 4C 48.2 % LV Cardiac Index MOD 4C 1564.3 cm???/min???m??? LV Diastolic Length 4C 7.9 cm LV Systolic Length 4C 7.1 cm LV Diastolic Volume MOD 2C 91.6 cm??? LV Systolic Volume MOD 2C 44.8 cm??? LV Ejection Fraction MOD 2C 51.1 % LV Cardiac Index MOD 2C 1628.8 cm???/min???m??? LV Diastolic Length 2C 8.3 cm LV Systolic Length 2C 7.3 cm LA Volume 53.9 cm??? 18 - 58 / 22 - 52 cm??? LA Volume Index 27.2 cm???/m??? 16 - 28 cm???/m??? Ascending Aorta Diameter 3.6 cm DOPPLER AV Peak Velocity 127.6 cm/s AV Peak Gradient 6.5 mmHg AV Mean Velocity 95.5 cm/s AV Mean Gradient 3.9 mmHg AV Velocity Time Integral 26.9 cm LVOT Peak Velocity 86.0 cm/s LVOT Peak Gradient 3.0 mmHg LVOT Velocity Time Integral 18.2 cm LVOT Stroke Volume 90.5 cm??? LVOT Stroke Volume Index 46.8 ml/m??? LVOT Cardiac Index 3148.7 cm???/min???m??? AV Area Cont Eq vti 3.4 cm??? AV Area Cont Eq pk 3.4 cm??? MV Area PHT 3.9 cm??? Mitral E Point Velocity 54.4 cm/s Mitral A Point Velocity 68.8 cm/s Mitral E to A Ratio 0.8 MV Deceleration Time 196.3 ms TR Peak Velocity 201.7 cm/s TR Peak Gradient 16.3 mmHg Right Atrial Pressure 5.0 mmHg Pulmonary Artery Systolic Pressu 21.3 mmHg Right Ventricular Systolic Press 21.3 mmHg PV Peak Velocity 109.0 cm/s PV Peak Gradient 4.8 mmHg FINDINGS Left Ventricle Left ventricular ejection fraction is estimated at 50-55 %. Left ventricular cavity size normal. Left ventricular wall thickness normal. No obvious regional wall motion abnormalities. Right Ventricle Normal right ventricular size and function. Right ventricular systolic pressure within normal limits. Right Atrium Normal right atrial size. Left Atrium Normal left atrial size. Mitral Valve Mitral valve thickened. No mitral stenosis, regurgitation or prolapse. Aortic Valve Trileaflet aortic valve. Aortic valve sclerosis. No aortic valve stenosis or regurgitation. Tricuspid Valve Structurally normal tricuspid valve. No tricuspid stenosis. Trace tricuspid regurgitation. Pulmonic Valve Structurally normal pulmonic valve. No pulmonic stenosis. Trace pulmonic regurgitation. Pericardium No pericardial effusion. Aorta Normal size aortic root and proximal ascending aorta. CONCLUSIONS Normal LV function Previewed by: Dr. Eugenio Diana MD (Electronically Signed) Final Date: 11 May 2024 17:23
--- NOTE | 2024-05-11 21:37 | P.PN ---
Subjective Progress Note Date: 05/11/24 Principal diagnosis: NSTEMI Mr. Lara is a 68-year-old male with a past medical history of prostrate disorder, hyperlipidemia coming into the hospital with a chief complaint of chest pain. In the ER patient had elevated troponins diagnosed with NSTEMI and taken to [facility]. Patient had PCI of RCA and LAD. Today the patient is lying in bed appears to be in no acute distress he is currently having supper with his at the bedside. He denies having any chest pain difficulty in breathing palpitations. No complaints of fever nausea vomiting or abdominal pain. Vitals are reviewed temperature 97.7 heart rate 61 respiratory rate 17 blood pressure 133/74 saturating at 98% on room air. Patient's labs are reviewed and within normal limits Objective - Vital Signs Vital signs: Vital Signs Temp 97.7 F 05/11/24 20:00 Pulse 61 05/11/24 20:00 Resp 17 05/11/24 20:00 BP 133/74 05/11/24 20:00 Pulse Ox 98 05/11/24 20:00 FiO2 Intake & Output 05/11/24 05/11/24 05/12/24 06:59 18:59 06:59 Intake Total 20 882 Balance 20 882 Weight 80.3 kg 80.3 kg Intake: IV 20 Invasive Line 1 20 Oral 882 Other: Voiding Method Toilet Toilet # Voids 1 - Exam General: Well-appearing,no acute distress. Head: Normocephalic, atraumatic Eyes: PERRLA, EOMI ENT: Airway patent Chest: Nonlabored breathing, Lungs clear Skin: No visual rash, normal skin tone Neuro: Alert and oriented 3 Musculoskeletal: No gross abnormalities - Labs CBC & Chem 7: 05/11/24 04:20 05/11/24 04:20 Labs: Abnormal Lab Results - Last 24 Hours (Table) 05/11/24 Range/Units 04:20 Sodium 135 L (137-145) mmol/L Glucose 100 H (74-99) mg/dL Assessment and Plan Assessment: ASSESSMENT NSTEMI Status post PCI of RCA and LAD Hyperlipidemia Prostate disorder Plan Patient is status post stenting of RCA and LAD Started on goal-directed medical therapy-aspirin and statin CARLOS inhibitor beta- sasha Echocardiogram pending Continue with the rest of his current management Further interventions depending on the progress of the patient
[2024-05-11 23:39] VITALS: RESP 16
--- NOTE | 2024-05-12 07:15 | P.PN ---
Subjective Progress Note Date: 05/12/24 The patient is a pleasant 68-year-old gentleman who was admitted to the hospital with chest discomfort and abnormal cardiac enzymes and he was diagnosed with acute non-ST ovation myocardial infarction and underwent a heart catheterization where he was found to have critical disease involving the RCA and LAD and he underwent PCI of both with residual disease involving the PLV branch of the RCA appears to be in the range of 60 to 70% treated medically. The echo still pending May 11, 2024 The patient was seen and evaluated this morning. Overall he seems to be stable and asymptomatic. He is on dual antiplatelet therapy along with a statin. Will wait for the echocardiogram. Possible discharge in next 24 to 48 hours. The physical examination is remarkable for regular rhythm with a soft systolic murmur and clear breathing sounds bilaterally and no edema was noted May 12, 2024 The patient was seen and evaluated this morning. He is asymptomatic and he is stable in terms of blood pressure and heart rate. He is on dual antiplatelet therapy along with a statin. The echo showed normal LV systolic function with the physical examination overall is unremarkable with the patient potentially can be discharged home. Assessment Acute non-ST ovation myocardial infarction CAD status post PCI as described above The ejection fraction is unknown at this point Hypertension and dyslipidemia Plan Continue the current medical regimen The patient can be discharged home later on today Objective - Vital Signs Vital signs: Vital Signs Temp 98.2 F 05/12/24 03:12 Pulse 61 05/12/24 03:12 Resp 16 05/12/24 03:12 BP 112/65 05/12/24 03:12 Pulse Ox 97 05/12/24 03:12 FiO2 Intake & Output 05/11/24 05/12/24 05/12/24 18:59 06:59 18:59 Intake Total 882 Balance 882 Weight 80.3 kg 79.4 kg Intake: Oral 882 Other: Voiding Method Toilet Toilet - Labs CBC & Chem 7: 05/11/24 04:20 05/11/24 04:20
[2024-05-12 07:56] LABS: Basophils % (A) 0 %; Eosinophils # (A) 0.3 k/uL (0-0.7); Eosinophils % (A) 4 %; HCT 44.8 % (39.0-53.0); HGB 15.7 gm/dL (13.0-17.5); Lymphocytes # (A) 2.1 k/uL (1.0-4.8); Lymphocytes % (A) 25 %; MCH 31.8 pg (25.0-35.0); MCV 90.9 fL (80.0-100.0); Mean Platelet Volume 7.1; Monocytes # (A) 0.4 k/uL (0-1.0); Monocytes % (A) 5 %; Neutrophils # (A) 5.3 k/uL (1.3-7.7); Neutrophils % (A) 64 %; Platelet Count 292 k/uL (150-450); RBC 4.93 m/uL (4.30-5.90); RDW 12.6 % (11.5-15.5); WBC 8.3 k/uL (3.8-10.6)
[2024-05-12 07:58] LABS: African American GFR (CKD) >90 (>60 ml/min/1.73 sqM); Anion Gap 11 mmol/L; Blood Urea Nitrogen 17 mg/dL (9-20); Calcium 9.9 mg/dL (8.4-10.2); Carbon Dioxide 24 mmol/L (22-30); Chloride 102 mmol/L (98-107); Glucose 111 mg/dL (74-99); Non-African American GFR(CKD) >90 (>60 ml/min/1.73 sqM); Potassium 4.6 mmol/L (3.5-5.1); Sodium 137 mmol/L (137-145)
[2024-05-12 08:42] VITALS: BP 136/71; PULSE 83; TEMP 98.1
--- NOTE | 2024-05-14 15:05 | P.DS ---
Providers Date of admission: 05/09/24 18:28 Expected date of discharge: 05/12/24 Attending physician: Chad De Los Santos Consults: 05/09/24 18:25 Consult Physician Urgent Consulting Provider: Cardiology Abiola Consult Reason/Comments: NSTEMI Do you want consulting provider notified?: Yes 05/10/24 14:17 Consult Physician Routine Consulting Provider: Dar Culver Consult Reason/Comments: Post Interventional Patient Do you want consulting provider notified?: Already Contacted Primary care physician: Livier Zuñiga Hospital Course: Final diagnosis NSTEMI Status post PCI of RCA and LAD Hyperlipidemia Prostate disorder GI prophylaxis DVT prophylaxis Full code Discharge disposition Patient is being discharged in a stable condition with guarded prognosis to home. Patient will follow-up with Dr. Zuñiga in the outpatient setting upon discharge. Patient is to continue with current medications and close outpatient follow-up with cardiology as scheduled. Total time taken is greater than 35 minutes. Hospital course This is a 68-year-old male who was recently admitted with chest pain and elevated troponins diagnosed with NSTEMI and went to the [facility] and is status post cardiac catheterization with PCI of RCA and LAD. Patient has been cleared by cardiology and would like to go home. Patient has been instructed to follow- up with primary care provider as well as cardiology in the outpatient setting this week. Please refer to other consultation notes for further HPI. Currently no reports of chest pain, shortness of breath, or palpitations. Patient is afebrile. No reports of nausea or vomiting and patient is tolerating diet. Patient will be discharged home today. Guarded prognosis Physical exam: Gen: This is a 68-year-old male who is awake, alert and oriented x 3, well- developed, well-nourished, elderly appearing HEENT: Head is atraumatic, normocephalic. Pupils equal, round. Sclerae is anicteric. NECK: Supple. No JVD. No lymphadenopathy. No thyromegaly. LUNGS: Diminished breath sounds bilaterally otherwise clear to auscultation. No wheezes or rhonchi. No intercostal retractions. HEART: Regular rate and rhythm. No murmur. ABDOMEN: Soft. Bowel sounds are present. No masses. No tenderness. EXTREMITIES: No pedal edema. No calf tenderness. NEUROLOGICAL: Patient is awake, alert and oriented x3. Cranial nerves 2 through 12 are grossly intact. Please refer to medication reconciliation sheet for a list of medications. The impression and plan of care has been dictated by Blaire Foley, Nurse Practitioner as directed. Dr. Loretta MD I have performed a history and examination and MDM of this patient, discussed the same with the dictator, and agree with the dictator's assessment and plan as written ,documented as a scribe. Based on total visit time, I have performed more than 50% of the visit. Patient Condition at Discharge: Fair Plan - Discharge Summary Discharge Rx Participant: Yes New Discharge Prescriptions: New Ticagrelor [Brilinta] 90 mg PO BID #60 tab Aspirin 81 mg PO DAILY #30 tab Losartan [Cozaar] 25 mg PO DAILY #30 tab Atorvastatin [Lipitor] 80 mg PO HS #30 tab Metoprolol Tartrate [Lopressor] 50 mg PO BID #60 tab Continue Cyclobenzaprine [Flexeril] 5 mg PO HS PRN PRN Reason: Pain Nitroglycerin Sl Tabs [Nitrostat] 0.4 mg SUBLINGUAL Q5M PRN PRN Reason: Chest Pain Acetaminophen [Tylenol Arthritis] 1,300 mg PO BID Discontinued Metoprolol Succinate (ER) [Toprol Xl] 25 mg PO DAILY Discharge Medication List Acetaminophen [Tylenol Arthritis] 1,300 mg PO BID 05/09/24 [History] Cyclobenzaprine [Flexeril] 5 mg PO HS PRN 05/09/24 [History] Nitroglycerin Sl Tabs [Nitrostat] 0.4 mg SUBLINGUAL Q5M PRN 05/09/24 [History] Aspirin 81 mg PO DAILY #30 tab 05/12/24 [Rx] Atorvastatin [Lipitor] 80 mg PO HS #30 tab 05/12/24 [Rx] Losartan [Cozaar] 25 mg PO DAILY #30 tab 05/12/24 [Rx] Metoprolol Tartrate [Lopressor] 50 mg PO BID #60 tab 05/12/24 [Rx] Ticagrelor [Brilinta] 90 mg PO BID #60 tab 05/12/24 [Rx] Follow up Appointment(s)/Referral(s): Francisco Noel MD [STAFF PHYSICIAN] - 1 Week (Office to call with appointment date and time.) Livier Zuñiga MD [Primary Care Provider] - 03/28/25 10:45 am (Please bring in medication bottles and discharge instructions.) Patient Instructions/Handouts: *Surgery [facility] - After Heart Catheterization - Classification Inspector Instructions Activity/Diet/Wound Care/Special Instructions: Activity limited until follow-up Follow-up with primary care provider on discharge Follow-up with cardiology outpatient as discussed Continue taking medications as prescribed Continue heart healthy diet Discharge Disposition: HOME SELF-CARE
== END 2024-05-12 11:53 | disposition home or self-care (01) | DRG 322 ==
LOC: EC 15:08 → 3SCARD 18:28
PROVIDERS: ADMIT Hospitalist; ATTEND Hospitalist
PROC: 027134Z Dilation of Coronary Artery, Two Arteries with Drug-eluting Intraluminal Device, Percutaneous Approach (ICD-10-PCS; principal; 2024-05-10 13:00)
PROC: B241ZZ3 Ultrasonography of Multiple Coronary Arteries, Intravascular (ICD-10-PCS; 2024-05-10 13:00)
PROC: B2111ZZ Fluoroscopy of Multiple Coronary Arteries using Low Osmolar Contrast (ICD-10-PCS; 2024-05-10 13:00)
DX: I21.4 Non-ST elevation (NSTEMI) myocardial infarction (principal); E78.00 Pure hypercholesterolemia, unspecified; I10 Essential (primary) hypertension; I07.1 Rheumatic tricuspid insufficiency; I25.2 Old myocardial infarction; M25.519 Pain in unspecified shoulder; N42.9 Disorder of prostate, unspecified; I25.10 Atherosclerotic heart disease of native coronary artery without angina pectoris; K21.9 Gastro-esophageal reflux disease without esophagitis
CPT/HCPCS: 36415; 71046; 80048; 80053; 80061; 83036; 83735; 84484; 85025; 85379; 85610; 85730; 92978; 92979; 93005; 93306; 93454; 96365; 96366; 99291

== ENCOUNTER 2024-05-13 15:27 | Observation (INO) | payer MEDICARE ==
--- NOTE | 2024-05-13 18:21 | ED ---
General Adult HPI - General Chief complaint: Chest Pain Stated complaint: fatigue and dizzy Time Seen by Provider: 05/13/24 17:56 Source: patient Mode of arrival: ambulatory Limitations: no limitations - History of Present Illness Initial comments: Patient is a 68-year-old with a past medical history of CAD recent cardiac stent by Dr. Hilliard presenting today for diarrhea and chest pain. Patient states that around 11:00 today he began experiencing dull substernal chest pain that feels like "someone is has a hand on his chest". It comes and goes. Is currently 2 out of 10. He took 3 to 25 mg aspirin x 2. Also states he has a left-sided headache that is currently rated as a 2 out of 10, no changes in vision, focal numbness or weakness with onset headache. Not the worst headache of his life. Additionally endorses 4 episodes of watery brown and yellow stools, no black or bloody stools. Denies abdominal pain just states he feels hungry. He denies nausea or vomiting. Denies nausea vomiting or diaphoresis with onset of chest pain. Denies hemoptysis. Is a non-smoker. No history of blood clots. When asked about shortness of breath patient states he feels like he has to take smaller breaths than normal. - Related Data Home Medications Medication Instructions Recorded Confirmed Acetaminophen [Tylenol Arthritis] 1,300 mg PO BID 05/09/24 05/13/24 Cyclobenzaprine [Flexeril] 5 mg PO HS PRN 05/09/24 05/13/24 Nitroglycerin Sl Tabs [Nitrostat] 0.4 mg SUBLINGUAL Q5M PRN 05/09/24 05/13/24 Previous Rx's Medication Instructions Recorded Aspirin 81 mg PO DAILY #30 tab 05/12/24 Atorvastatin [Lipitor] 80 mg PO HS #30 tab 05/12/24 Losartan [Cozaar] 25 mg PO DAILY #30 tab 05/12/24 Metoprolol Tartrate [Lopressor] 50 mg PO BID #60 tab 05/12/24 Ticagrelor [Brilinta] 90 mg PO BID #60 tab 05/12/24 Colchicine [Colcrys] 0.6 mg PO BID #60 each 05/15/24 Famotidine [Pepcid] 20 mg PO BID #60 tab 05/15/24 Allergies Allergy/AdvReac Type Severity Reaction Status Date / Time No Known Allergies Allergy Verified 05/13/24 20:37 Review of Systems ROS Statement: Those systems with pertinent positive or pertinent negative responses have been documented in the HPI. ROS Other: All systems not noted in ROS Statement are negative. Past Medical History Past Medical History: Chest Pain / Angina, Hyperlipidemia, Hypertension, Myocardial Infarction (SC), Osteoarthritis (OA), Prostate Disorder Additional Past Medical History / Comment(s): recent biopsy of prostate( local) Last Myocardial Infarction Date:: 05/09/24 History of Any Multi-Drug Resistant Organisms: None Reported Past Surgical History: Heart Catheterization With Stent, Prostate Surgery Past Anesthesia/Blood Transfusion Reactions: No Reported Reaction Date of Last Stent Placement:: 05/10/24 Past Psychological History: No Psychological Hx Reported Smoking Status: Never smoker Past Alcohol Use History: None Reported Past Drug Use History: None Reported - Past Family History Mother Family Medical History: Cancer Additional Family Medical History / Comment(s): rectal Father Additional Family Medical History / Comment(s): parkinsons General Exam - General Exam Comments Initial Comments: PE: CONSTITUTIONAL: No apparent distress, well appearing SKIN: Warm, dry, no jaundice, hives or petechiae EYES: Pupils are equally round, extraocular movements intact without nystagmus, clear conjunctiva, non-icteric sclera HENT: Normocephalic, atraumatic, moist mucus membranes, oropharynx clear without exudates NECK: , Full range of motion, normal appearance PULMONARY: Clear to auscultation without wheezes, rhonchi, or rales, normal e xcursion, no accessory muscle use and no stridor CARDIOVASCULAR: Regular rate, rhythm, normal S1 and S2. No appreciated murmurs, rubs or gallops. Strong radial pulses with intact distal perfusion. No lower extremity edema GASTROINTESTINAL: Soft, active bowel sounds throughout, non-tender, non-disten ded, no palpable masses, no rebound or guarding. No hepatosplenomegaly GENITOURINARY: MUSCULOSKELETAL: Extremities have no gross deformity NEUROLOGIC:_a/o x 3, GCS 15, normal mentation and speech. Moves all extremities x 4 without motor or sensory deficit PSYCHIATRIC:_normal mood and affect, thought process is clear and linear Limitations: no limitations Course Vital Signs 03/26/25 03/26/25 03/27/25 16:06 18:49 01:31 Temperature 98.7 F 98.6 F Pulse Rate 76 72 93 Respiratory 20 18 18 Rate Blood Pressure 120/77 131/70 126/74 O2 Sat by Pulse 98 97 97 Oximetry EKG Findings - EKG Comments: EKG Findings:: Oral sinus rhythm, rate 60 bpm W[place] interval 188 ms QT QTc 381/392 ms, left axis deviation, T wave inversion lead V1, otherwise no significant ST elevations or depressionCompared to EKG performed on 05/11/2024, T wave in lead V2 is flattened from prior, with small mount of J-point elevation when compared to prior, otherwise new T wave inversion lead aVL otherwise no new ST depressions or elevations Medical Decision Making - Medical Decision Making Was pt. sent in by a medical professional or institution ([facility], SEWING MACHINIST, urgent care, hospital, or senior living...) When possible be specific @ -No Did you speak to anyone other than the patient for history (EMS, parent, family, police, friend...)? What history was obtained from this source @ -No Did you review nursing and triage notes (agree or disagree)? Why? @ -I reviewed nursing and triage notes Were old charts reviewed (outside hosp., previous admission, EMS record, old EKG, old radiological studies, urgent care reports/EKG's, senior living records)? Report findings @ -Medical records reviewed-Reviewed echocardiogram report from recent admission on 05/09/2024, showed normal echocardiogram Differential Diagnosis (chest pain, altered mental status, abdominal pain women, abdominal pain men, vaginal bleeding, weakness, fever, dyspnea, syncope, headache, dizziness, GI bleed, back pain, seizure, CVA, palpatations, mental health, musculoskeletal)? @ -Differential Chest Pain: Stable Angina, Unstable Angina, STEMI, NSTEMI Aortic Dissection, pericarditis, pleurisy, chostochondirits, Pneumothorax, Musculoskeletal, Esophageal Spasm GERD, Cholecystitis, Pancreatitis, Zoster, this is not meant to be an all-inclusive list. EKG interpreted by me (3pts min.). @ -As above X-rays interpreted by me (1pt min.). @Personally reviewed chest x-ray see no evidence of cardiomegaly, consolidations or pleural effusions I agree with radiologist interpretation CT interpreted by me (1pt min.). @ -None done U/S interpreted by me (1pt. min.). @ -None done What testing was considered but not performed or refused? (CT, X-rays, U/S, labs)? Why? @ -None What meds were considered but not given or refused? Why? @ -None Did you discuss the management of the patient with other professionals (professionals i.e. , PA, SEWING MACHINIST, lab, RT, psych nurse, executive secretary social welfare, molecular pathologist, teacher, security officer, counter caser)? Give summary @ -No Was smoking cessation discussed for >3mins.? @ -No Was critical care preformed (if so, how long)? @ -No Were there social determinants of health that impacted care today? How? (Homelessness, low income, unemployed, alcoholism, drug addiction, transportation, low edu. Level, literacy, decrease access to med. care, usp, rehab)? @ -No Was there de-escalation of care discussed even if they declined (Discuss DNR or withdrawal of care, Hospice)? @ -No What co-morbidities impacted this encounter? (DM, HTN, Smoking, COPD, CAD, Cancer, CVA, ARF, Chemo, Hep., AIDS, mental health diagnosis, sleep apnea, morbid obesity)? @CAD Was patient admitted / discharged? Hospital course, mention meds given and ro kamron, prescriptions, significant lab abnormalities, going to OR and other pertinent info. @ -Admission- This is a 68-year-old gentleman presenting today for diarrhea, chest pressure x 1 day. Exam reassuring, no LE edema, lungs are clear to auscultation bilaterally, abdomen is soft and nontender without palpable masses. Plan for comprehensive labs, viral testing, chest pain evaluation. 2 mg morphine, sublingual nitro and IV fluids ordered. Aspirin was not ordered as patient has taken 2 doses of 325 mg aspirin today. Labs significant for mild leukocytosis white blood cell count 15.2, neutrophils 14, I suspect this is secondary to diarrhea, sodium 135, BUN 35, troponin 0.358 however previously was 0.794 I suspect this is downtrending though a repeat will be obtained. Due to patient's recent admission for chest pain requiring cardiac cath we will plan for admission for observation to trend troponin. On reassessment patient endorses resolution of pain. Discussed with him plan for admission. He is agreeable plan of care. Case discussed with Dr. Harper who kindly accepted patient for admission. Undiagnosed new problem with uncertain prognosis? @ -No Drug Therapy requiring intensive monitoring for toxicity (Heparin, Nitro, Insulin, Cardizem)? @ -No Were any procedures done? @ -No Diagnosis/symptom? @Chest pain, diarrhea Acute, or Chronic, or Acute on Chronic? Acute Uncomplicated (without systemic symptoms) or Complicated (systemic symptoms)? @ -Complicated Side effects of treatment? @ -No Exacerbation, Progression, or Severe Exacerbation? @ -No Poses a threat to life or bodily function? How? (Chest pain, USA, SC, pneumonia, PE, COPD, DKA, ARF, appy, cholecystitis, CVA, Diverticulitis, Homicidal, Suicidal, threat to staff... and all critical care pts) @ -Potentially if secondary to ACS - Lab Data Result diagrams: 05/15/24 07:07 05/15/24 07:07 Lab Results 05/13/24 05/13/24 05/13/24 Range/Units 18:36 18:36 18:36 WBC 15.2 H (3.8-10.6) k/uL RBC 5.10 (4.30-5.90) m/uL Hgb 16.4 (13.0-17.5) gm/dL Hct 46.8 (39.0-53.0) % MCV 91.7 (80.0-100.0) fL MCH 32.1 (25.0-35.0) pg MCHC 35.0 (31.0-37.0) g/dL RDW 12.8 (11.5-15.5) % Plt Count 328 (150-450) k/uL MPV 7.6 Neutrophils % 92 % Lymphocytes % 6 % Monocytes % 1 % Eosinophils % 0 % Basophils % 0 % Neutrophils # 14.0 H (1.3-7.7) k/uL Lymphocytes # 0.9 L (1.0-4.8) k/uL Monocytes # 0.2 (0-1.0) k/uL Eosinophils # 0.1 (0-0.7) k/uL Basophils # 0.0 (0-0.2) k/uL PT 11.2 (10.0-12.5) sec INR 1.0 (<1.2) APTT 22.7 (22.0-30.0) sec D-Dimer 0.28 (<0.60) mg/L FEU Sodium 135 L (137-145) mmol/L Potassium 4.9 (3.5-5.1) mmol/L Chloride 101 (98-107) mmol/L Carbon Dioxide 22 (22-30) mmol/L Anion Gap 12 mmol/L BUN 35 H (9-20) mg/dL Creatinine 0.81 (0.66-1.25) mg/dL Est GFR (CKD-EPI)AfAm >90 (>60 ml/min/1.73 sqM) Est GFR (CKD-EPI)NonAf >90 (>60 ml/min/1.73 sqM) Glucose 124 H (74-99) mg/dL Calcium 10.1 (8.4-10.2) mg/dL Magnesium 1.8 (1.6-2.3) mg/dL Total Bilirubin 1.0 (0.2-1.3) mg/dL AST 38 (17-59) U/L ALT 42 (4-49) U/L Alkaline Phosphatase 93 (38-126) U/L Troponin I (0.000-0.034) ng/mL NT-Pro-B Natriuret Pep 40 pg/mL Total Protein 7.5 (6.3-8.2) g/dL Albumin 4.9 (3.5-5.0) g/dL Lipase 216 (23-300) U/L Influenza Type A (PCR) (Not Detectd) Influenza Type B (PCR) (Not Detectd) RSV (PCR) (Not Detectd) SARS-CoV-2 (PCR) (Not Detectd) 05/13/24 05/13/24 Range/Units 18:36 18:36 WBC (3.8-10.6) k/uL RBC (4.30-5.90) m/uL Hgb (13.0-17.5) gm/dL Hct (39.0-53.0) % MCV (80.0-100.0) fL MCH (25.0-35.0) pg MCHC (31.0-37.0) g/dL RDW (11.5-15.5) % Plt Count (150-450) k/uL MPV Neutrophils % % Lymphocytes % % Monocytes % % Eosinophils % % Basophils % % Neutrophils # (1.3-7.7) k/uL Lymphocytes # (1.0-4.8) k/uL Monocytes # (0-1.0) k/uL Eosinophils # (0-0.7) k/uL Basophils # (0-0.2) k/uL PT (10.0-12.5) sec INR (<1.2) APTT (22.0-30.0) sec D-Dimer (<0.60) mg/L FEU Sodium (137-145) mmol/L Potassium (3.5-5.1) mmol/L Chloride (98-107) mmol/L Carbon Dioxide (22-30) mmol/L Anion Gap mmol/L BUN (9-20) mg/dL Creatinine (0.66-1.25) mg/dL Est GFR (CKD-EPI)AfAm (>60 ml/min/1.73 sqM) Est GFR (CKD-EPI)NonAf (>60 ml/min/1.73 sqM) Glucose (74-99) mg/dL Calcium (8.4-10.2) mg/dL Magnesium (1.6-2.3) mg/dL Total Bilirubin (0.2-1.3) mg/dL AST (17-59) U/L ALT (4-49) U/L Alkaline Phosphatase (38-126) U/L Troponin I 0.358 H* (0.000-0.034) ng/mL NT-Pro-B Natriuret Pep pg/mL Total Protein (6.3-8.2) g/dL Albumin (3.5-5.0) g/dL Lipase (23-300) U/L Influenza Type A (PCR) Not Detected (Not Detectd) Influenza Type B (PCR) Not Detected (Not Detectd) RSV (PCR) Not Detected (Not Detectd) SARS-CoV-2 (PCR) Not Detected (Not Detectd) Disposition Clinical Impression: Chest pain, Diarrhea Disposition: ADMITTED IP TO THIS HOSP Condition: Stable
[2024-05-13] MEDS: SODIUM CHLORIDE 0.9% 1,000 ML IV STA (18:39)
[2024-05-13] MEDS: ACETAMINOPHEN TAB 500 MG TAB PO STA (18:41)
[2024-05-13] MEDS: MORPHINE SULFATE 2 MG/ML SYRINGE IVP STA (18:43)
[2024-05-13] MEDS: ONDANSETRON 4 MG/2 ML VIAL IVP STA (18:43)
[2024-05-13] MEDS: NITROGLYCERIN SL TABS 0.4 MG TAB SUBLINGUAL STA (18:49)
[2024-05-13 18:55] LABS: Basophils % (A) 0 %; Eosinophils # (A) 0.1 k/uL (0-0.7); Eosinophils % (A) 0 %; HCT 46.8 % (39.0-53.0); HGB 16.4 gm/dL (13.0-17.5); Lymphocytes # (A) 0.9 k/uL (1.0-4.8); Lymphocytes % (A) 6 %; MCH 32.1 pg (25.0-35.0); MCV 91.7 fL (80.0-100.0); Mean Platelet Volume 7.6; Monocytes # (A) 0.2 k/uL (0-1.0); Monocytes % (A) 1 %; Neutrophils % (A) 92 %; Platelet Count 328 k/uL (150-450); RDW 12.8 % (11.5-15.5); WBC 15.2 k/uL (3.8-10.6)
[2024-05-13 18:59] LABS: ALT 42 U/L (4-49); AST 38 U/L (17-59); African American GFR (CKD) >90 (>60 ml/min/1.73 sqM); Albumin 4.9 g/dL (3.5-5.0); Alkaline Phosphatase 93 U/L (38-126); Anion Gap 12 mmol/L; Blood Urea Nitrogen 35 mg/dL (9-20); Calcium 10.1 mg/dL (8.4-10.2); Carbon Dioxide 22 mmol/L (22-30); Chloride 101 mmol/L (98-107); Glucose 124 mg/dL (74-99); Lipase 216 U/L (23-300); Magnesium 1.8 mg/dL (1.6-2.3); Non-African American GFR(CKD) >90 (>60 ml/min/1.73 sqM); Potassium 4.9 mmol/L (3.5-5.1); Sodium 135 mmol/L (137-145); Total Protein 7.5 g/dL (6.3-8.2)
[2024-05-13 19:03] LABS: Partial Thromboplastin Time 22.7 sec (22.0-30.0); Prothrombin Time 11.2 sec (10.0-12.5)
[2024-05-13 19:07] LABS: NT-Pro-B-Type Natriuretic Pept 40 pg/mL
[2024-05-13 19:24] LABS: Influenza A Not Detected (Not Detectd); Influenza B Not Detected (Not Detectd); RSV Not Detected (Not Detectd)
[2024-05-13] MEDS ORDERED: traMADol 50 MG TAB PO PRN (21:27)
[2024-05-13] MEDS ORDERED: CALCIUM CARBONATE 500 MG CHEWABLE PO PRN (21:27)
[2024-05-13] MEDS ORDERED: ALPRAZolam 0.25 MG TAB PO PRN (21:27)
[2024-05-13] MEDS ORDERED: ACETAMINOPHEN TAB 325 MG TAB PO PRN (21:27)
[2024-05-13] MEDS ORDERED: MAG HYDROX/AL HYDROX/SIMETH 30 ML CUP PO PRN (21:27)
[2024-05-13] MEDS ORDERED: MORPHINE SULFATE 4 MG/ML SYRINGE IV PRN (21:27)
[2024-05-13] MEDS ORDERED: ONDANSETRON 4 MG/2 ML VIAL IVP PRN (21:27)
[2024-05-13] MEDS ORDERED: NALOXONE 0.4 MG/ML 1 ML VIAL IV PRN (21:27)
[2024-05-13] MEDS ORDERED: NITROGLYCERIN SL TABS 0.4 MG TAB SUBLINGUAL PRN (21:29)
[2024-05-13] MEDS ORDERED: CYCLOBENZAPRINE 5 MG TAB PO PRN (21:29)
--- NOTE | 2024-05-13 21:42 | XR ---
EXAMINATION TYPE: XR chest 2V DATE OF EXAM: 05/13/2024 CLINICAL INDICATION: Male, 68 years old with history of chest pain, TECHNIQUE: Frontal and lateral views of the chest are obtained. COMPARISON: Chest x-ray May 09, 2024 FINDINGS: There is no focal air space opacity, pleural effusion, or pneumothorax seen. The cardiac silhouette size remains within normal limits. Multilevel spurring the thoracic spine is redemonstrate d. IMPRESSION: No acute cardiopulmonary process. [facility], , 05/13/2024 9:39 PM
[2024-05-13] MEDS: ATORVASTATIN 80 MG TAB PO SCH (22:51)
--- NOTE | 2024-05-14 02:48 | P.HPIM ---
History of Present Illness H&P Date: 05/14/24 Patient is a 68-year-old male with a PMH of CAD status post stent x 2 (05/10/2024), hypertension, hyperlipidemia presenting with chest pain. Patient reports today around 11 PM he developed chest pain again with similar symptoms. He describes it as a intermittent, non-radiating pressure-like, burning sensation. Patient denies any exacerbating or alleviating factors. Patient states he was recently admitted for intermittent chest pain that started 5 days ago along with heart palpitations. Patient was ultimately diagnosed with TN that required stenting of mid RCA and mid LAD. During interview patient reports chest pain has improved but is still present. Patient endorses a mild headache. Patient reports of having multiple episodes of watery brown stools. Denies any blood in stool. Patient denies any fever, chills, shortness of breath, abdominal pain, urinary symptoms. EKG independently interpreted displaying sinus rhythm, rate 65 bpm, QTc 392 ms CXR independently interpreted displaying no acute cardiopulmonary process Troponin 0.358, D-dimer 0.28, proBNP 40, WBC 15.2, sodium 135, potassium 4.9, CO2 22, BUN 35, creatinine 0.18 glucose 124. T98.7 F, NV 76, RR 20, BP 120/77, O2 saturation 98% on room air ED documentation reviewed. Review of systems: Pertinent positives and negatives as discussed in HPI, a complete review of systems was performed and all other systems are negative. Social history: Tobacco: Never smoker Alcohol: Denies alcohol use Recreational drugs: Denies illicit drug Physical examination: Vital signs reviewed General: non toxic, no distress, appears at stated age, normal weight Derm: no unusual rashes/lesions, warm Head: atraumatic, normocephalic, symmetric Eyes: EOMI, anicteric sclera, pupils equal round reactive to light ENT: Nose and ears atraumatic Mouth: no lip lesion, mucus membranes moist Cardiovascular: S1S2 reg, no murmur, positive dorsalis pedis pulse bilateral, no edema Lungs: CTA bilateral, no rhonchi, no rales, no accessory muscle use Abdominal: soft, non-tender to palpation, no guarding Ext: muscle strength 5 out of 5 in all 4 extremities grossly, no gross muscle atrophy Neuro: CN II-XI grossly intact, no gross focal neuro deficits Psych: Alert, oriented to person, place, and time Assessment/Plan: Patient is a 68-year-old male with a PMH of CAD status post stent, hypertension, hyperlipidemia presenting with chest pain. #. Acute chest pain #. Elevated troponin, likely type II TN #. Hypertension EKG independently interpreted displaying sinus rhythm, rate 65 bpm, QTc 392 ms CXR independently interpreted displaying no acute cardiopulmonary process Troponin 0.358 => 0.202, continue to trend patient s/p stent x 2 4 days ago, could explain the elevated troponin aspirin 81 mg p.o. daily Brilinta 90 mg p.o. twice daily atorvastatin 80 mg p.o. at bedtime Continue Cozaar 25 mg p.o. daily Continue Lopressor 50 mg p.o. twice daily Nitrostat 0.4 mg sublingual Q5M as needed Acetaminophen 650 mg p.o. every 6 hours as needed for pain management TSH, lipid panel ordered A1c 5.5% Cardiac monitoring Cardiology consulted #. Multiple episodes of acute diarrhea Patient with recent hospitalization C. difficile ordered Encourage oral hydration #. Leukocytosis Likely reactive to chest pain versus diarrhea Patient afebrile, no signs of infection Follow-up CBC F: N/A E: Replete electrolytes as needed N: Heart healthy diet A: Ambulatory baseline DVT prophylaxis: Lovenox 40 SQ daily The patient is admitted with an anticipated less than 2 midnight stay for evaluation of acute chest pain. CODE STATUS: Full code Discussed with: Patient Anticipated discharge place: Pending clinical course Ciara Red MD PGY-1 IM Dictation was produced using [employer] dictation software. please excuse any grammatical, word or spelling errors. Past Medical History Past Medical History: Chest Pain / Angina, Hyperlipidemia, Hypertension, Myocardial Infarction (TN), Osteoarthritis (OA), Prostate Disorder Additional Past Medical History / Comment(s): recent biopsy of prostate( local) Last Myocardial Infarction Date:: 05/09/24 History of Any Multi-Drug Resistant Organisms: None Reported Past Surgical History: Heart Catheterization With Stent, Prostate Surgery Past Anesthesia/Blood Transfusion Reactions: No Reported Reaction Date of Last Stent Placement:: 05/10/24 Past Psychological History: No Psychological Hx Reported Smoking Status: Never smoker Past Alcohol Use History: None Reported Past Drug Use History: None Reported - Past Family History Mother Family Medical History: Cancer Additional Family Medical History / Comment(s): rectal Father Additional Family Medical History / Comment(s): parkinsons Medications and Allergies Home Medications Medication Instructions Recorded Confirmed Type Acetaminophen [Tylenol Arthritis] 1,300 mg PO BID 05/09/24 05/13/24 History Cyclobenzaprine [Flexeril] 5 mg PO HS PRN 05/09/24 05/13/24 History Nitroglycerin Sl Tabs [Nitrostat] 0.4 mg SUBLINGUAL Q5M PRN 05/09/24 05/13/24 History Aspirin 81 mg PO DAILY #30 tab 05/12/24 05/13/24 Rx Atorvastatin [Lipitor] 80 mg PO HS #30 tab 05/12/24 05/13/24 Rx Losartan [Cozaar] 25 mg PO DAILY #30 tab 05/12/24 05/13/24 Rx Metoprolol Tartrate [Lopressor] 50 mg PO BID #60 tab 05/12/24 05/13/24 Rx Ticagrelor [Brilinta] 90 mg PO BID #60 tab 05/12/24 05/13/24 Rx Allergies Allergy/AdvReac Type Severity Reaction Status Date / Time No Known Allergies Allergy Verified 05/13/24 20:37 Physical Exam Vitals: Vital Signs Temp Pulse Resp BP Pulse Ox 05/13/24 18:49 72 18 131/70 97 05/13/24 16:06 98.7 F 76 20 120/77 98 Intake and Output 05/13/24 05/13/24 05/14/24 14:59 22:59 06:59 Other: Weight 78.471 kg Results CBC & Chem 7: 05/13/24 18:36 05/13/24 18:36 Labs: Abnormal Lab Results - Last 24 Hours (Table) 05/13/24 05/13/24 05/13/24 Range/Units 18:36 18:36 18:36 WBC 15.2 H (3.8-10.6) k/uL Neutrophils # 14.0 H (1.3-7.7) k/uL Lymphocytes # 0.9 L (1.0-4.8) k/uL Sodium 135 L (137-145) mmol/L BUN 35 H (9-20) mg/dL Glucose 124 H (74-99) mg/dL Troponin I 0.358 H* (0.000-0.034) ng/mL
[2024-05-14 08:56] LABS: Basophils % (A) 0 %; Eosinophils % (A) 0 %; HGB 15.3 gm/dL (13.0-17.5); Lymphocytes # (A) 0.9 k/uL (1.0-4.8); Lymphocytes % (A) 7 %; MCH 30.9 pg (25.0-35.0); MCHC 33.9 g/dL (31.0-37.0); MCV 91.1 fL (80.0-100.0); Mean Platelet Volume 7.4; Monocytes # (A) 0.3 k/uL (0-1.0); Monocytes % (A) 3 %; Neutrophils # (A) 11.3 k/uL (1.3-7.7); Neutrophils % (A) 90 %; Platelet Count 337 k/uL (150-450); RBC 4.94 m/uL (4.30-5.90); RDW 12.3 % (11.5-15.5); WBC 12.6 k/uL (3.8-10.6)
[2024-05-14 09:17] LABS: ALT 33 U/L (4-49); AST 30 U/L (17-59); African American GFR (CKD) >90 (>60 ml/min/1.73 sqM); Albumin 4.4 g/dL (3.5-5.0); Alkaline Phosphatase 81 U/L (38-126); Anion Gap 13 mmol/L; Blood Urea Nitrogen 27 mg/dL (9-20); Calcium 9.6 mg/dL (8.4-10.2); Carbon Dioxide 19 mmol/L (22-30); Chloride 103 mmol/L (98-107); Glucose 172 mg/dL (74-99); Magnesium 1.6 mg/dL (1.6-2.3); Non-African American GFR(CKD) >90 (>60 ml/min/1.73 sqM); Potassium 4.5 mmol/L (3.5-5.1); Sodium 135 mmol/L (137-145); Total Bilirubin 0.6 mg/dL (0.2-1.3); Total Protein 6.7 g/dL (6.3-8.2)
[2024-05-14] MEDS: ENOXAPARIN 40 MG/0.4 ML SYRINGE SQ SCH (10:29)
[2024-05-14] MEDS: METOPROLOL TARTRATE 50 MG TAB PO SCH (10:29)
[2024-05-14] MEDS: FAMOTIDINE 20 MG TAB PO SCH (10:29)
[2024-05-14] MEDS: ASPIRIN 81 MG PO SCH (10:29)
[2024-05-14] MEDS: LOSARTAN 25 MG TAB PO SCH (10:29)
[2024-05-14] MEDS: TICAGRELOR 90 MG TAB PO SCH (10:29)
--- NOTE | 2024-05-14 12:20 | P.CRDCN ---
History of Present Illness Consult date: 05/14/24 History of present illness: The patient is a pleasant 68-year-old gentleman who is known to our service from before who was admitted to hospital recently with acute non-ST ovation myocardial infarction and underwent a heart catheterization and was found to have critical disease involving the RCA and LAD and he underwent stenting of both with intermediate to severe residual disease involving the PLV branch of the RCA which was a large-caliber vessel treated medically with preserved LV systolic function as well as hypertension and dyslipidemia. He presented to the hospital complaining of diarrhea and also he was experiencing some discomfort in the chest. The discomfort appears to be overall pleuritic only worse with deep breath. At the same time he describes discomfort as a pressure. No other cardiovascular symptoms of shortness of breath or dizziness or lightness or any feeling of heart racing or fluttering or presyncope or syncope or edema in the lower extremities. He underwent further evaluation including an EKG came in to be unremarkable and cardiac enzymes came to be slightly elevated but trending down could be secondary to the last angioplasty he underwent. The physical examination is remarkable for regular rhythm with a soft systolic murmur and clear breathing sounds bilaterally and no edema was noted in the lower extremities. Assessment Atypical chest discomfort CAD with prior angioplasty as described above Preserved LV systolic function Diarrhea of unknown etiology Multiple comorbid conditions Plan Continue the current medical regimen including antiplatelet therapy Start the patient on colchicine 0.6 mg p.o. twice daily Obtain an echo only limited to assess for pericardial effusion Monitor the patient for the next 24 hours Follow-up with the patient Past Medical History Past Medical History: Chest Pain / Angina, Hyperlipidemia, Hypertension, Myocardial Infarction ([place]), Osteoarthritis (OA), Prostate Disorder Additional Past Medical History / Comment(s): recent biopsy of prostate( local) Last Myocardial Infarction Date:: 05/09/24 History of Any Multi-Drug Resistant Organisms: None Reported Past Surgical History: Heart Catheterization With Stent, Prostate Surgery Additional Past Surgical History / Comment(s): cardiac catherization with stent x2 05/09/24 Past Anesthesia/Blood Transfusion Reactions: No Reported Reaction Date of Last Stent Placement:: 05/10/24 Past Psychological History: No Psychological Hx Reported Smoking Status: Never smoker Past Alcohol Use History: None Reported Past Drug Use History: None Reported - Past Family History Mother Family Medical History: Cancer Additional Family Medical History / Comment(s): rectal Father Additional Family Medical History / Comment(s): parkinsons Medications and Allergies Home Medications Medication Instructions Recorded Confirmed Type Acetaminophen [Tylenol Arthritis] 1,300 mg PO BID 05/09/24 05/13/24 History Cyclobenzaprine [Flexeril] 5 mg PO HS PRN 05/09/24 05/13/24 History Nitroglycerin Sl Tabs [Nitrostat] 0.4 mg SUBLINGUAL Q5M PRN 05/09/24 05/13/24 History Aspirin 81 mg PO DAILY #30 tab 05/12/24 05/13/24 Rx Atorvastatin [Lipitor] 80 mg PO HS #30 tab 05/12/24 05/13/24 Rx Losartan [Cozaar] 25 mg PO DAILY #30 tab 05/12/24 05/13/24 Rx Metoprolol Tartrate [Lopressor] 50 mg PO BID #60 tab 05/12/24 05/13/24 Rx Ticagrelor [Brilinta] 90 mg PO BID #60 tab 05/12/24 05/13/24 Rx Allergies Allergy/AdvReac Type Severity Reaction Status Date / Time No Known Allergies Allergy Verified 05/13/24 20:37 Physical Exam Vitals: Vital Signs Temp Pulse Pulse Resp BP BP Pulse Ox 05/14/24 08:49 97.7 F 99 14 155/81 95 05/14/24 02:00 98 F 91 16 152/67 95 05/14/24 01:31 98.6 F 93 18 126/74 97 05/13/24 18:49 72 18 131/70 97 05/13/24 16:06 98.7 F 76 20 120/77 98 Intake and Output 05/13/24 05/14/24 05/14/24 22:59 06:59 14:59 Other: # Voids 1 Weight 78.471 kg 78.5 kg Results 05/14/24 08:32 05/14/24 08:32 Cardiac Enzymes 05/13/24 05/13/24 05/14/24 Range/Units 18:36 18:36 00:49 AST 38 (17-59) U/L Troponin I 0.358 H* 0.202 H* (0.000-0.034) ng/mL 05/14/24 Range/Units 08:32 AST 30 (17-59) U/L Troponin I (0.000-0.034) ng/mL Coagulation 05/13/24 Range/Units 18:36 PT 11.2 (10.0-12.5) sec APTT 22.7 (22.0-30.0) sec CBC 05/13/24 05/14/24 Range/Units 18:36 08:32 WBC 15.2 H 12.6 H (3.8-10.6) k/uL RBC 5.10 4.94 (4.30-5.90) m/uL Hgb 16.4 15.3 (13.0-17.5) gm/dL Hct 46.8 45.0 (39.0-53.0) % Plt Count 328 337 (150-450) k/uL Comprehensive Metabolic Panel 05/13/24 05/14/24 Range/Units 18:36 08:32 Sodium 135 L 135 L (137-145) mmol/L Potassium 4.9 4.5 (3.5-5.1) mmol/L Chloride 101 103 (98-107) mmol/L Carbon Dioxide 22 19 L (22-30) mmol/L BUN 35 H 27 H (9-20) mg/dL Creatinine 0.81 0.72 (0.66-1.25) mg/dL Glucose 124 H 172 H (74-99) mg/dL Calcium 10.1 9.6 (8.4-10.2) mg/dL AST 38 30 (17-59) U/L ALT 42 33 (4-49) U/L Alkaline Phosphatase 93 81 (38-126) U/L Total Protein 7.5 6.7 (6.3-8.2) g/dL Albumin 4.9 4.4 (3.5-5.0) g/dL Current Medications Generic Name Dose Route Start Last Admin Trade Name Freq PRN Reason Stop Dose Admin Acetaminophen 650 mg 05/13/24 21:27 Acetaminophen Tab 325 Mg Tab PO Q6HR PRN Mild Pain or Fever > 100.5 Al Hydroxide/Mg Hydroxide 15 ml 05/13/24 21:27 Mag Hydrox/Al Hydrox/Simeth 30 Ml Cup PO Q6HR PRN Indigestion Alprazolam 0.25 mg 05/13/24 21:27 Alprazolam 0.25 Mg Tab PO Q6HR PRN Anxiety Aspirin 81 mg 05/14/24 09:00 05/14/24 10:29 Aspirin 81 Mg PO 81 mg DAILY MICKEY Administration Atorvastatin Calcium 80 mg 05/13/24 21:30 05/13/24 22:51 Atorvastatin 80 Mg Tab PO 80 mg HS MICKEY Administration Calcium Carbonate/Glycine 1,000 mg 05/13/24 21: Calcium Carbonate 500 Mg Chewable PO Q4HR PRN Dyspepsia Cyclobenzaprine HCl 5 mg 05/13/24 21:29 Cyclobenzaprine 5 Mg Tab PO HS PRN Pain Enoxaparin Sodium 40 mg 05/14/24 09:00 05/14/24 10:29 Enoxaparin 40 Mg/0.4 Ml Syringe SQ 40 mg DAILY MICKEY Administration Famotidine 20 mg 05/14/24 09:00 05/14/24 10:29 Famotidine 20 Mg Tab PO 20 mg BID MICKEY Administration Losartan Potassium 25 mg 05/14/24 09:00 05/14/24 10:29 Losartan 25 Mg Tab PO 25 mg DAILY MICKEY Administration Metoprolol Tartrate 50 mg 05/14/24 09:00 05/14/24 10:29 Metoprolol Tartrate 50 Mg Tab PO 50 mg BID MICKEY Administration Morphine Sulfate 4 mg 05/13/24 21: Morphine Sulfate 4 Mg/Ml Syringe IV Q4HR PRN Severe Pain (Scale 7 to 10) Naloxone HCl 0.2 mg 05/13/24 21: Naloxone 0.4 Mg/Ml 1 Ml Vial IV Q2M PRN Opioid Reversal Nitroglycerin 0.4 mg 05/13/24 21:29 Nitroglycerin Sl Tabs 0.4 Mg Tab SUBLINGUAL Q5M PRN Chest Pain Ondansetron HCl 4 mg 05/13/24 21:27 Ondansetron 4 Mg/2 Ml Vial IVP Q8HR PRN Nausea And Vomiting Ticagrelor 90 mg 05/14/24 09:00 05/14/24 10:29 Ticagrelor 90 Mg Tab PO 90 mg BID MICKEY Administration Tramadol HCl 50 mg 05/13/24 21: Tramadol 50 Mg Tab PO Q6H PRN Moderate Pain (Scale 4 to 6) Intake and Output 05/13/24 05/14/24 05/14/24 22:59 06:59 14:59 Other: # Voids 1 Weight 78.471 kg 78.5 kg 05/14/24 08:32 05/14/24 08:32
--- NOTE | 2024-05-14 12:57 | P.PN ---
Subjective Progress Note Date: 05/14/24 Hospital Course: Patient is a 68-year-old male with a PMH of CAD status post stent x 2 (05/11/19), hypertension, hyperlipidemia presenting with chest pain. Patient reports today around 11 PM he developed chest pain again with similar symptoms. He describes it as a intermittent, non-radiating pressure-like, burning sensation. Patient denies any exacerbating or alleviating factors. Patient states he was recently admitted for intermittent chest pain that started 5 days ago along with heart palpitations. Patient was ultimately diagnosed with [place] that required stenting of mid RCA and mid LAD. During interview patient reports chest pain has improved but is still present. Patient endorses a mild headache. Patient reports of having multiple episodes of watery brown stools. Denies any blood in stool. Patient denies any fever, chills, shortness of breath, abdominal pain, urinary symptoms. EKG independently interpreted displaying sinus rhythm, rate 65 bpm, QTc 392 ms CXR independently interpreted displaying no acute cardiopulmonary process Troponin 0.358, D-dimer 0.28, proBNP 40, WBC 15.2, sodium 135, potassium 4.9, CO2 22, BUN 35, creatinine 0.18 glucose 124. T98.7 F, SD 76, RR 20, BP 120/77, O2 saturation 98% on room air Patient was admitted for further management of atypical chest pain, cardiology consulted. Ordered limited TTE to assess for pericardial effusion, patient was started on colchicine 0.6 mg p.o. twice daily, continued on the rest of cardiac medications. His diarrhea resolved as of 05/13 4 PM, no associated abdominal pain Pertinent Imaging: No new imaging Subjective: Still has minimal midline chest discomfort, otherwise no complaints Pertinent positives and negatives as discussed above, a complete review of systems was performed and all other systems are negative. Vitals Signs Reviewed. General: [nontoxic], [no distress], [appears at stated age] Derm: [warm], [dry] Head: [atraumatic], [normocephalic], [symmetric] Eyes: [EOMI], [no lid lag], [anicteric sclera] Mouth: [no lip lesion], [mucus membranes moist] Cardiovascular: [S1S2 reg], [systolic murmur] Lungs: [CTA bilateral], [no rhonchi, no rales] , [no accessory muscle use] Abdominal: [soft], [ nontender to palpation], [no guarding], [no appreciable organomegaly] Ext: [no gross muscle atrophy], [no edema], [no contractures] Neuro: [ CN II-XI grossly intact], [no focal neuro deficits] Psych: [Alert], [oriented], [appropriate affect] Data Reviewed Today: Pertinent Labs: WBC 12.6, normal hemoglobin and platelet count, sodium stable 135, normal creatinine, bicarb 19, blood glucose 172, TSH 2.4 Assessment and Plan: Atypical chest discomfort Elevated troponin Hypertension aspirin 81 mg p.o. daily -Brilinta 90 mg p.o. twice daily -atorvastatin 80 mg p.o. at bedtime -Continue Cozaar 25 mg p.o. daily -Continue Lopressor 50 mg p.o. twice daily -Nitrostat 0.4 mg sublingual Q5M as needed -Acetaminophen 650 mg p.o. every 6 hours as needed for pain management TSH-normal, lipid panel ordered A1c 5.5% -Cardiac monitoring -Cardiology consulted -TTE limited pending -Continue colchicine 0.6 mg twice daily Multiple episodes of acute diarrhea, resolved -Last bowel movement 05/13 4 PM -Patient with recent hospitalization -Encourage oral hydration Leukocytosis, likely reactive -Patient afebrile, no signs of infection -Monitor off antibiotics DVT prophylaxis: Lovenox 40 SQ daily The patient is admitted with an anticipated less than 2 midnight stay for evaluation of acute chest pain. CODE STATUS: Full code Discussed with: Patient Anticipated discharge place: Home, 05/15 Objective - Vital Signs Vital signs: Vital Signs Temp 98.3 F 05/14/24 12:15 Pulse 65 05/14/24 12:15 Resp 12 05/14/24 12:15 BP 113/57 05/14/24 12:15 Pulse Ox 99 05/14/24 12:15 FiO2 Intake & Output 05/13/24 05/14/24 05/14/24 18:59 06:59 18:59 Weight 78.471 kg 78.5 kg Other: # Voids 1 - Labs CBC & Chem 7: 05/14/24 08:32 05/14/24 08:32 Labs: Abnormal Lab Results - Last 24 Hours (Table) 05/13/24 05/13/24 05/13/24 Range/Units 18:36 18:36 18:36 WBC 15.2 H (3.8-10.6) k/uL Neutrophils # 14.0 H (1.3-7.7) k/uL Lymphocytes # 0.9 L (1.0-4.8) k/uL Sodium 135 L (137-145) mmol/L Carbon Dioxide (22-30) mmol/L BUN 35 H (9-20) mg/dL Glucose 124 H (74-99) mg/dL Troponin I 0.358 H* (0.000-0.034) ng/mL 05/14/24 05/14/24 05/14/24 Range/Units 00:49 08:32 08:32 WBC 12.6 H (3.8-10.6) k/uL Neutrophils # 11.3 H (1.3-7.7) k/uL Lymphocytes # 0.9 L (1.0-4.8) k/uL Sodium 135 L (137-145) mmol/L Carbon Dioxide 19 L (22-30) mmol/L BUN 27 H (9-20) mg/dL Glucose 172 H (74-99) mg/dL Troponin I 0.202 H* (0.000-0.034) ng/mL
[2024-05-14] MEDS: DICLOFENAC SODIUM GEL 100 GM TUBE TOPICAL SCH (14:15)
[2024-05-14] MEDS: COLCHICINE 0.6 MG EACH PO SCH (14:17)
[2024-05-14 14:51] LABS: Chol/HDL Ratio 4.31 Ratio; LDL Cholesterol,Calculated 97.1 mg/dL (0.0-131.0)
--- NOTE | 2024-05-14 17:37 | CA ---
Transthoracic Echo Report Name: Canelo Day Age: 68 Gender: M : 1955 Exam Date: 05/14/2024 14:18 Exam Location: [facility] Ht (in): 67 Wt (lb): 173 Ordering Physician: Patrick Arreola MD ([id number]) Attending/Referring Phys: Racecar Driver Leesa Morales RDCS Procedure CPT: Indications: possible pericardial effusion Cardiac Hx: Limited for pericardial effusion Technical Quality: Good Contrast 1: Total Dose (mL): Contrast 2: Total Dose (mL): MEASUREMENTS (Male / Female) Normal Values 2D ECHO LV Diastolic Diameter PLAX 4.4 cm 4.2 - 5.9 / 3.9 - 5.3 cm LV Systolic Diameter PLAX 1.8 cm IVS Diastolic Thickness 0.8 cm 0.6 - 1.0 / 0.6 - 0.9 cm LVPW Diastolic Thickness 0.8 cm 0.6 - 1.0 / 0.6 - 0.9 cm LV Relative Wall Thickness 0.4 FINDINGS Left Ventricle Left ventricular ejection fraction is estimated at 55-60 %. Left ventricular cavity size normal. Left ventricular wall thickness normal. No obvious regional wall motion abnormalities. Right Ventricle Right Atrium Left Atrium Mitral Valve Aortic Valve Tricuspid Valve Pulmonic Valve Pericardium No pericardial effusion. Aorta CONCLUSIONS No pericardial effusion noted on the study Previewed by: Dr. Eugenio Diana MD (Electronically Signed) Final Date: 14 May 2024 17:36
[2024-05-15 07:29] LABS: Basophils % (A) 0 %; Eosinophils % (A) 0 %; HCT 41.6 % (39.0-53.0); HGB 14.4 gm/dL (13.0-17.5); Lymphocytes % (A) 6 %; MCH 31.3 pg (25.0-35.0); MCHC 34.6 g/dL (31.0-37.0); MCV 90.4 fL (80.0-100.0); Mean Platelet Volume 7.7; Monocytes # (A) 0.6 k/uL (0-1.0); Monocytes % (A) 4 %; Neutrophils # (A) 13.7 k/uL (1.3-7.7); Neutrophils % (A) 89 %; Platelet Count 325 k/uL (150-450); RDW 12.4 % (11.5-15.5); WBC 15.4 k/uL (3.8-10.6)
[2024-05-15 07:48] LABS: African American GFR (CKD) >90 (>60 ml/min/1.73 sqM); Anion Gap 8 mmol/L; Blood Urea Nitrogen 26 mg/dL (9-20); Calcium 9.4 mg/dL (8.4-10.2); Carbon Dioxide 23 mmol/L (22-30); Chloride 103 mmol/L (98-107); Glucose 139 mg/dL (74-99); Magnesium 1.9 mg/dL (1.6-2.3); Non-African American GFR(CKD) >90 (>60 ml/min/1.73 sqM); Potassium 4.4 mmol/L (3.5-5.1); Sodium 134 mmol/L (137-145)
--- NOTE | 2024-05-15 09:38 | P.PN ---
Subjective Progress Note Date: 05/15/24 The patient is a pleasant 68-year-old gentleman who is known to our service from before who was admitted to hospital recently with acute non-ST ovation myocardial infarction and underwent a heart catheterization and was found to have critical disease involving the RCA and LAD and he underwent stenting of both with intermediate to severe residual disease involving the PLV branch of the RCA which was a large-caliber vessel treated medically with preserved LV systolic function as well as hypertension and dyslipidemia. He presented to the hospital complaining of diarrhea and also he was experiencing some discomfort in the chest. The discomfort appears to be overall pleuritic only worse with deep breath. At the same time he describes discomfort as a pressure. No other cardiovascular symptoms of shortness of breath or dizziness or lightness or any feeling of heart racing or fluttering or presyncope or syncope or edema in the lower extremities. He underwent further evaluation including an EKG came in to be unremarkable and cardiac enzymes came to be slightly elevated but trending down could be secondary to the last angioplasty he underwent. The physical examination is remarkable for regular rhythm with a soft systolic murmur and clear breathing sounds bilaterally and no edema was noted in the lower extremities. May 15, 2024 The patient was seen and evaluated this morning he is asymptomatic from a cardiovascular standpoint of view but continues to have diarrhea currently under investigation. The physical examination appears to be unchanged compared to yesterday. Echo showed no evidence of pericardial effusion. The chest discomfort has gone completely. From the cardiovascular standpoint of view, the patient can be discharged home Assessment Atypical chest discomfort CAD with prior angioplasty as described above Preserved LV systolic function Diarrhea of unknown etiology Multiple comorbid conditions Plan Continue the current medical regimen Possible discharge later on today if there is no more episode of diarrhea Objective - Vital Signs Vital signs: Vital Signs Temp 98.0 F 05/15/24 07:34 Pulse 66 05/15/24 07:34 Resp 14 05/15/24 07:34 BP 132/76 05/15/24 07:34 Pulse Ox 95 05/15/24 07:34 FiO2 Intake & Output 05/14/24 05/15/24 05/15/24 18:59 06:59 18:59 Intake Total 480 240 240 Balance 480 240 240 Weight 78.4 kg Intake: Oral 480 240 240 Other: Voiding Method Toilet # Voids 3 2 - Labs CBC & Chem 7: 05/15/24 07:07 05/15/24 07:07 Labs: Abnormal Lab Results - Last 24 Hours (Table) 05/14/24 05/15/24 05/15/24 Range/Units 08:32 07:07 07:07 WBC 15.4 H (3.8-10.6) k/uL Neutrophils # 13.7 H (1.3-7.7) k/uL Sodium 134 L (137-145) mmol/L BUN 26 H (9-20) mg/dL Glucose 139 H (74-99) mg/dL HDL Cholesterol 35.70 L (40.00-60.00) mg/dL
--- NOTE | 2024-05-15 11:00 | P.DS ---
Providers Date of admission: 05/13/24 21:27 Attending physician: Samia Elias MD Consults: 05/13/24 21:27 Consult Physician Routine Consulting Provider: Patrick Arreola Consult Reason/Comments: Chest pain Do you want consulting provider notified?: Yes, Notify in am Primary care physician: Livier Zuñiga Hospital Course: Discharge Diagnosis: Atypical chest discomfort Elevated troponin likely in the settings of recent angioplasty Hypertension Acute diarrhea, likely viral gastroenteritis Leukocytosis Hospital Course: Patient is a 68-year-old male with a PMH of CAD status post stent x 2 (05/10/2024), hypertension, hyperlipidemia presenting with chest pain. Patient reports today around 11 PM he developed chest pain again with similar symptoms. He describes it as a intermittent, non-radiating pressure-like, burning sensation. Patient denies any exacerbating or alleviating factors. Patient states he was recently admitted for intermittent chest pain that started 5 days ago along with heart palpitations. Patient was ultimately diagnosed with CO that required stenting of mid RCA and mid LAD. During interview patient reports chest pain has improved but is still present. Patient endorses a mild headache. Patient reports of having multiple episodes of watery brown stools. Denies any blood in stool. Patient denies any fever, chills, shortness of breath, abdominal pain, urinary symptoms. EKG independently interpreted displaying sinus rhythm, rate 65 bpm, QTc 392 ms CXR independently interpreted displaying no acute cardiopulmonary process Troponin 0.358, D-dimer 0.28, proBNP 40, WBC 15.2, sodium 135, potassium 4.9, CO2 22, BUN 35, creatinine 0.18 glucose 124. T98.7 F, OK 76, RR 20, BP 120/77, O2 saturation 98% on room air Patient was admitted for further management of atypical chest pain, cardiology consulted. Ordered limited TTE to assess for pericardial effusion, patient was started on colchicine 0.6 mg p.o. twice daily, continued on the rest of cardiac medications. TTE came back negative for pericardial effusion. Cleared for discharge from cardiology standpoint. No more episodes of chest discomfort during hospitalization. Patient did have several more watery episodes of diarrhea with no associated abdominal pain, no fevers. No overnight bowel movements, first bowel movement was after breakfast and morning medications, no mucus, no blood. He would like to be discharged, he will monitor diarrhea episodes, no stay hydrated, discussed importance of quality nutrition. Avoid caffeine for the next several days. He will follow-up with primary care physician and roof technician Patient seen and examined at bedside Vital signs reviewed and stable. General: [nontoxic], [no distress], [appears at stated age] Derm: [warm], [dry] Head: [atraumatic], [normocephalic], [symmetric] Eyes: [EOMI], [no lid lag], [anicteric sclera] Mouth: [no lip lesion], [mucus membranes moist] Cardiovascular: [S1S2 reg], [systolic murmur] Lungs: [CTA bilateral], [no rhonchi, no rales] , [no accessory muscle use] Abdominal: [soft], [ nontender to palpation], [no guarding], [no appreciable organomegaly] Ext: [no gross muscle atrophy], [no edema], [no contractures] Neuro: [ CN II-XI grossly intact], [no focal neuro deficits] Psych: [Alert], [oriented], [appropriate affect] A total of 38 minutes of time were spent preparing this complex discharge summary. Patient was discharged on 05/15/2024. Patient Condition at Discharge: Stable Plan - Discharge Summary Discharge Rx Participant: Yes New Discharge Prescriptions: No Action Cyclobenzaprine [Flexeril] 5 mg PO HS PRN PRN Reason: Pain Ticagrelor [Brilinta] 90 mg PO BID #60 tab Nitroglycerin Sl Tabs [Nitrostat] 0.4 mg SUBLINGUAL Q5M PRN PRN Reason: Chest Pain Acetaminophen [Tylenol Arthritis] 1,300 mg PO BID Aspirin 81 mg PO DAILY #30 tab Losartan [Cozaar] 25 mg PO DAILY #30 tab Atorvastatin [Lipitor] 80 mg PO HS #30 tab Metoprolol Tartrate [Lopressor] 50 mg PO BID #60 tab Discharge Medication List Acetaminophen [Tylenol Arthritis] 1,300 mg PO BID 05/09/24 [History] Cyclobenzaprine [Flexeril] 5 mg PO HS PRN 05/09/24 [History] Nitroglycerin Sl Tabs [Nitrostat] 0.4 mg SUBLINGUAL Q5M PRN 05/09/24 [History] Aspirin 81 mg PO DAILY #30 tab 05/12/24 [Rx] Atorvastatin [Lipitor] 80 mg PO HS #30 tab 05/12/24 [Rx] Losartan [Cozaar] 25 mg PO DAILY #30 tab 05/12/24 [Rx] Metoprolol Tartrate [Lopressor] 50 mg PO BID #60 tab 05/12/24 [Rx] Ticagrelor [Brilinta] 90 mg PO BID #60 tab 05/12/24 [Rx] Follow up Appointment(s)/Referral(s): Livier Zuñiga MD [Primary Care Provider] - 1-2 days Patrick Arreola MD [STAFF PHYSICIAN] - 1 Week
[2024-05-15 11:06] VITALS: PULSE 62
[2024-05-15 11:42] VITALS: BP 140/71; TEMP 97.7
[2024-05-15 15:09] VITALS: RESP 16
== END 2024-05-15 15:28 | disposition home or self-care (01) ==
LOC: EC 15:27 → 6NMEDSUR 21:27 → 3SCARD 23:37
PROVIDERS: ADMIT Internal Medicine; ATTEND Internal Medicine
DX: R07.89 Other chest pain (principal); I21.4 Non-ST elevation (NSTEMI) myocardial infarction; I25.10 Atherosclerotic heart disease of native coronary artery without angina pectoris; I10 Essential (primary) hypertension; E78.5 Hyperlipidemia, unspecified; R19.7 Diarrhea, unspecified; R51.9 Headache, unspecified; R07.2 Precordial pain; D72.829 Elevated white blood cell count, unspecified; Z79.82 Long term (current) use of aspirin; Z79.02 Long term (current) use of antithrombotics/antiplatelets; Z79.899 Other long term (current) drug therapy; Z11.52 Encounter for screening for COVID-19; Z11.59 Encounter for screening for other viral diseases; Z95.5 Presence of coronary angioplasty implant and graft
CPT/HCPCS: 96372 ×2; 96361; 96374; 96375; 99285; 36415; 93005; 93308; 85379; 83880; 80061; 80053 ×2; 80048; 84443; 83690; 83735 ×3; 84484 ×2; 85025 ×3; 85610; 85730; 87324; 87636; 71046; G0378 ×3; J2405; J1650 ×2; J2270

== ENCOUNTER → 2024-06-29 | Outpatient (CLI) | payer MEDICARE ==
--- NOTE | 2024-06-30 06:55 | MR ---
EXAMINATION TYPE: MR shoulder LT wo con DATE OF EXAM: 06/29/2024 8:01 PM COMPARISON: Left shoulder x-ray March 13, 2024 CLINICAL INDICATION: Male, 69 years old with history of ,75.22, Left Shoulder pain, Hx injury fell an d moved arm awkwardly, Evaluate for rotator cuff tear, bicipital tendinitis, supraspinatus tendon IV Contrast: cc (None if empty) TECHNIQUE: Multiplanar, multisequence imaging of the left shoulder is performed without contrast. FINDINGS: Rotator Cuff: Marked increased signal in the infraspinatus muscle and tendon with full-thickness retr acted tear distally. There is full-thickness retracted tear of the supraspinatus tendon to the level of the acromioclavicular joint. Imaging is increased signal in the subscapularis tendon. Mild muscula r atrophy of the supraspinatus and infraspinatus muscle bulk is noted. Some edema through the teres m inor muscle is present. Acromioclavicular Joint: Moderate to severe narrowing and spurring along the superior capsular hypert rophy Glenohumeral Joint: Narrowing is present. No significant spurring. High positioning humeral head is n oted. [id number] size joint effusion. Labrum: The labrum appears grossly intact given limitation of non-arthrogram study. Biceps Tendon: The long head of biceps is in normal location within bicipital groove. Increased signa l in the intracapsular portion near the labral anchor. Bone marrow signal: Heterogeneous increased T2 signal anterior medial aspect near the head neck junct ion. Other: No additional significant abnormality is appreciated. IMPRESSION: 1. Full-thickness retracted tears of the supraspinatus and infraspinatus tendons. Edema through the t eres minor and infraspinatus muscles suggesting muscular injury. 2. Tendinosis/partial tearing of the intracapsular portion long head of biceps tendon. 3. High positioned humeral head suggests underlying instability. Advanced degenerative changes at the acromioclavicular joint are noted. [facility], Workstation: 3, 06/30/2024 6:52 AM
== END | disposition home or self-care (01) ==
LOC: RADMRIMAIN 19:45
PROVIDERS: ATTEND Orthopaedic Surgery
DX: S46.012A Strain of muscle(s) and tendon(s) of the rotator cuff of left shoulder, initial encounter (principal); M75.22 Bicipital tendinitis, left shoulder; M75.92 Shoulder lesion, unspecified, left shoulder; M19.012 Primary osteoarthritis, left shoulder; R60.0 Localized edema; W19.XXXA Unspecified fall, initial encounter